=== PATIENT | male | born 1955 | race Caucasian/White ===

== ENCOUNTER 2023-12-14 13:57 | Outpatient (REF) | payer SELFPAY ==
[2023-12-14 14:09] LABS: Appearance Urine Clear; Color Urine Yellow; Glucose Urine UA Negative (Negative); Leukocyte Esterase Urine Trace (Negative); Nitrite Urine Negative (Negative); Specific Gravity - Urine 1.015 (1.005-1.025); UMIC TRIGGER UA YES; Urine Blood Negative (Negative); Urine Ketones Negative (Negative); Urine Protein Negative (Neg-Trace)
[2023-12-14 14:14] LABS: Bacteria Urine None Seen (None Seen); Hyaline Casts Urine 0-2 /LPF (0-2); RBC Urine 0-2 /HPF (0-2); Squamous Epithelial Cell Urine 0-2 /HPF (0-2); WBC Urine 0-5 /HPF (0-5)
== END 2023-12-14 13:58 | disposition home or self-care (01) ==
LOC: HO.HVNA 13:57
PROVIDERS: Visit Provider Family Medicine
DX: N39.0 Urinary tract infection, site not specified (principal)
CPT/HCPCS: 81001; 81003; 87086; 87088; 87186

== ENCOUNTER 2025-06-04 12:39 | Outpatient (REF) | payer MEDICARE, SELFPAY ==
--- NOTE | 2025-06-04 | EMG_ITS ---
Chief Complaint: numbness of lower extremities Referred by: Abad St MD Procedure done: NCV and EMG lower extremities Finding: Bilateral tibial and peroneal motor studies were performed bilateral superficial peroneal and sural sensory studies were performed tibial H reflexes were obtained and EMG needle examination was performed. 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
--- OUTSIDE RECORDS SUMMARY | 2025-06-04 15:04 | XMS_ITS | Clinical Summary ---
Author Organization [place] [address] [address] o[address] [facility] Building Address [address] [place] [address] Phone Care Team Providers Care Looper Operator Name Role Phone Valeria Brennan NP Primary Care Provider [phone] Allergies No known active allergies Medications tamsulosin (FLOMAX) 0.4 mg 24 hr capsule Take 2 capsules (0.8 mg total) by mouth. 4 Active gabapentin (NEURONTIN) 300 mg capsuleIndicati ons:Spinal stenosis, lumbosacral region Take 1 capsule (300 mg total) by mouth 3 (three) times a day. 90 each 5 06/12/20 25 Active lisinopriL (PRINIVIL,ZESTR IL) 2.5 mg tablet Take 1 tablet (2.5 mg total) by mouth 1 (one) time each day. 30 each 5 06/25/20 25 Active polyethylene glycol (MIRALAX) 17 gram packet Take 17 g by mouth 1 (one) time each day for 10 days. 5 06/04/20 25 Active midodrine (PROAMATINE) 5 mg tablet Take 0.5 tablets (2.5 mg total) by mouth 3 (three) times a day if needed (hypotension SBP<100). 5 06/24/20 25 Active pregabalin (LYRICA) 50 mg capsule Take 1 capsule (50 mg total) by mouth 3 (three) times a day. 5 05/13/20 25 Discontinue d(Side effects) amoxicillin-cla vulanate (AUGMENTIN) 875-125 mg per tablet Take 1 tablet by mouth 2 (two) times a day for 8 days. 5 06/02/20 25 phenazopyridine (PYRIDIUM) 100 mg tablet Take 1 tablet (100 mg total) by mouth 3 (three) times a day if needed for bladder spasms for up to 3 days. 5 05/28/20 25 Active Problems Problem Noted Date Diagnosed Date Atrial fibrillation with RVR (CMS/HCC V24, CMS/H CC V28) 05/20/2025 Septic shock (CMS/HCC V24, CMS/HCC V28) 05/20/20 25 Arterial hypotension 05/20/2025 Spinal stenosis, lumbosacral region 05/13/2025 Assessment & Plan (05/13/2025 6:52 PM EDT): I had a lengthy discussion with Mr. 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 Despite the bony decompression, there remains some compression of the nerve roots at L4-5 and L5-S1 from the cystic structure. We discussed the option of a reoperation but, it is entirely possible that this could reaccumulate. He has experienced worsened bowel and bladder incontinence since surgery which may not improve. He has tried multiple medications to treat the stinging and burning sensation in his legs. Most recently, this was Lyrica which caused adverse reaction and he stopped it on his own. He would like to go back to gabapentin which he was on for many years until the high dose no longer benefited him. He has had a remission without it and he can see some benefit. I have restarted gabapentin at 300 mg 3 times daily and we will order bilateral lower extremity EMGs. 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 Encounters Date Type Department Care Team Description 06/04/2025 Lab Requisition [facility] Lab [address] [place] [phone] Ena Arango MD Essential (primary) hypertension 05/30/2025 Lab Requisition [facility] Lab [address] [place] [phone] Ena Arango MD Essential (primary) hypertension 05/28/2025 Lab Requisition [facility] Lab [address] [place] [phone] Ena Arango MD Essential (primary) hypertension 05/26/2025 Lab Requisition [facility] Lab [address] [place] [phone] Ena Arango MD Essential (primary) hypertension; Hypothyroidism, unspecified; Vitamin D deficiency, unspecified 05/20/2025 7:10 PM EDT Anesthesia Event [facility] OR [address] [place] [phone] Jarvis Reed MD 05/20/2025 7:00 PM EDT - 05/20/2025 7:50 PM EDT Surgery [facility] OR [address] [place] [phone] Lyndon Matta MD CYSTOSCOPY INSERT STENT URETER 05/20/2025 4:47 AM EDT - 05/25/2025 2:14 PM EDT Hospital Encounter [facility] [address] [place] [phone] Jamie Alcazar MD Damri, Misael Mal, MD LoiaSonali cespedes MD Levrault, Richard, DO Flores, Carlos M, MD Kela, Kashyap Devendrabhai, MD Septic shock ([facility] V24, [facility] V28) (Primary Dx); Shock circulatory ([facility] V24, [facility] V28); Atrial fibrillation with RVR ([facility] V24, [facility] V28); Sepsis with encephalopathy and septic shock, due to unspecified organism ([facility] V24, [facility] V28); Urinary tract infection, acute; Acute renal failure, unspecified acute renal failure type ([facility] V24); Obstructive pyelonephritis Discharge Disposition: Senior Living Facility 05/13/2025 1:30 PM EDT Office Visit [facility] [address] [place] [phone] Darshana Warren MD Spinal stenosis, lumbosacral region (Primary Dx); Radiculopathy, lumbar region 05/13/2025 Telephone [facility] [address] [place] [phone] Valeria Brennan NP 04/24/2025 Telephone [facility] [address] [place] [phone] Camilo Neff MD 04/18/2025 1:00 PM EDT Office Visit [facility] [address] [place] [phone] Valeria Brennan NP Nerve sheath tumor (Primary Dx); Sciatic leg pain; Urinary retention; Neuropathy; Weakness of both lower extremities from Last 3 Months Surgical History Surgery Date Site/Laterality Comments TONSILLECTOMY PROCEDURE: HISTORICAL TONSILLECTOMY HERNIA REPAIR PROCEDURE: HISTORICAL HERNIA REPAIR/ING COLONOSCOPY 03/18/2008 PROCEDURE: HISTORICAL COLONOSCOPY; COMMENT: diverticulosis; repeat in ten years OTHER SURGICAL HISTORY N/A PROCEDURE: HISTORY OTHER; COMMENT: tumor from spine lumbar area unable to remove all of the tumor. 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) Muscle wasting and atrophy, NEC, unsp lower leg DX:Muscle wasting and atroph y, NEC, unsp lower leg Lipoma of back DX:Lipoma of [place] Family History Medical History Relation Name Comments Prostate cancer Brother x2 younger-Aidan ael Heart attack Father Stroke Father Diabetes Maternal Grandmother Heart attack Maternal Grandmother Breast cancer Mother Hypertension Mother Heart attack Paternal Grandmother Relation Name Status Comments Brother x2 Alive Father Maternal Grandmother Mother Paternal Grandmother Sister Alive Social History Tobacco Use Types Packs/Day Years Used Date Smoking Tobacco: Never Smokeless Tobacco: Never Tobacco Cessation:Counseling Given: Not Answered Alcohol Use Standard Drinks/Week Comments Not Currently 10 (1 standard drink = 0.6 oz pu re alcohol) Food Risk Answer Date Recorded Within the past 12 months we worried whether our food would run out before we got money to buy more. Not asked 05/22/2025 Within the past 12 months th e food we bought just didn't last and we didn't have money to get more. Not asked 05/22/2025 Interpersonal Safety Answer Date Record ed Physical Abuse 05/21/2025 Verbal Abuse 05/21/2025 Sex and Gender Information Value Date Recorded Sex Assigned at Not on file Legal Sex Male 10:09 PM EST Gender Identity Not on file Sexual Orientation Not on file Obstetrics History Last Filed Vital Signs Vital Sign Reading Time Taken Comments Blood Pressure 133/60 05/25/2025 12:04 PM EDT Pulse 90 05/25/2025 12:04 PM EDT Temperature 36.7 C (98.1 F) 05/25/2025 7:50 AM EDT Respiratory Rate 17 05/25/2025 7:50 AM EDT Oxygen Saturation 94% 05/25/2025 8:34 AM EDT Inhaled Oxygen Concentration - - Weight 74.8 kg (164 lb 14.5 oz) 05/20/2025 8:17 AM EDT Height 180.3 cm (5' 11 ) 05/20/2025 8:17 AM EDT Body Mass Index 23 05/20/2025 8:17 AM EDT Plan of Treatment Upcoming Encounters Date Type Department Care Team (Late st Contact Info) Description 06/16/2025 10:30 AM EDT Hospital Encounter [facility] OR [address] [place] [phone] Chance Corcoran MD [address] [address] 06/16/2025 10:30 AM EDT - 06/16/2025 12:[address] [facility] OR [address] [place] [phone] Chance Corcoran MD [address] [address] CYSTOSCOPY URETEROSCOPY LASER LITHOTRIPSY AND STENT [49700 (CPT )] 07/21/2025 3:00 PM EDT Office Visit Internal Medicine - [facility] [address] [place] [phone] Valeria Brennan, [place] [address] [place] [address] Scheduled Procedures Name Priority Associated Diagnoses Date/Ti me CYSTOSCOPY URETEROSCOPY Calculus of ureter 06/16/2025 10:30 AM EDT Health Maintenance Due Date Last Done Comments DTaP,Tdap,and Td Vaccines (1 - Tdap) 1975 Pneumococcal Vaccine: 50+ Years (1 of 1 - PCV) 2006 Zoster Vaccines (1 of 2) 2006 Cholesterol Screening (Lipid Panel) 09/03/2022 Colorectal Cancer Screening: Colonoscopy 09/03/2022 Hepatitis C Screening 09/03/2022 Depression Screening 10/02/2024 01/16/2024 Medicare Annual Wellness Visit 01/15/2025 01/16/2024 COVID-19 Vaccine ( season) 2025 10/11/2022, 09/28/2021, 03/04/2021, Additional history exists Influenza Vaccine (#1) 2025 Social Influencers of Health Screening 05/22/2026 05/22/2025 Falls Risk Assessment 05/25/2026 05/25/2025 Hypertension/CHF/CAD Annual BMP Blood Test 06/03/2026 06/03/2025, 05/29/2025, 05/26/2025, Additional history exists RSV Immunization Adult Patients (1 - 1-dose 75+ series) 2031 HIB Vaccines Aged Out No longer eligi ble based on patient's age to complete this topic HPV Vaccines Aged Out No longer eligi ble based on patient's age to complete this topic Hepatitis A Vaccines Aged Out No long er eligible based on patient's age to complete this topic Hepatitis B Vaccines Aged Out No long er eligible based on patient's age to complete this topic IPV Vaccines Aged Out No longer eligi ble based on patient's age to complete this topic MMR Vaccines Aged Out No longer eligi ble based on patient's age to complete this topic Meningococcal ACWY Vaccine Aged Out N o longer eligible based on patient's age to complete this topic Meningococcal B Vaccine Aged Out No l onger eligible based on patient's age to complete this topic RSV Immunization Patients Under 20 months Aged Out No longer eligible based on patient's age to complete this topic Varicella Vaccines Aged Out No longer eligible based on patient's age to complete this topic Medical Devices Implanted Type Area Sound Equipment Mechanic Device Identifier Shelf Expiration Date Model / Serial / Lot Surgiflo Hemostatic Matrix [facility] [id number] Implanted:Qty : 1 on 11/15/2023 by Venkatesh Allan MD Implants N/A: Spine Lumbar [facility] [employer] 06/01/2025 [id number] / / [id number] Sealant Fibrin Vistaseal 4ml [facility] [id number] Implanted:Qty : 2 on 11/15/2023 by Venkatesh Allan MD Implants N/A: Spine Lumbar [facility] [employer] 12/15/2023 [id number] / / [id number] ++Dnu+Disc Use [id number] Hemostat Absorb 2x14in Surgicel [facility] [id number] Implanted:Qty : 1 on 11/15/2023 by Venkatesh Allan MD Implants N/A: Spine Lumbar [facility] [employer] 12/30/20251950 / / [id number] Stent Uret [id number] Contr Percuflex Hydroplus - [id number] - [id number] Implanted:Qty : 1 on 05/20/2025 by Lyndon Matta MD at [facility] Stents Left: Ureter [employer] [id number] 02/26/2028 [id number] / [id number] / [id number] Stent Uret [id number] Contr Percuflex Hydroplus - [id number] - [id number] Implanted:Qty : 1 on 05/20/2025 by Lyndon Matta MD at [facility] Stents Right: Ureter [employer] [id number] 02/26/2028 [id number] / [id number] / [id number] Duramatrix Onlay Plus 3x3 Stry-Cran [id number] Implanted:Qty : 1 on 11/15/2023 by Venkatesh Allan MD N/A: Spine Lumbar [employer] 06/01/2026 [id number] / / [id number] Procedures Procedure Name Priority Date/Time Associated Diagnosis Comments BASIC METABOLIC PANEL Routine 06/03/2025 5:10 AM EDT Essential (primary) hypertension COMPLETE BLOOD COUNT Routine 06/03/2025 5:10 AM EDT Essential (primary) hypertension BASIC METABOLIC PANEL Routine 05/29/2025 7:04 AM EDT Essential (primary) hypertension COMPLETE BLOOD COUNT Routine 05/29/2025 7:04 AM EDT Essential (primary) hypertension THYROID STIMULATING HORMONE Routine 05/26/2025 6:34 AM EDT Essential (primary) hypertension Hypothyroidism, unspecified Vitamin D deficiency, unspecified VITAMIN D 25 HYDROXY Routine 05/26/2025 6:34 AM EDT Essential (primary) hypertension Hypothyroidism, unspecified Vitamin D deficiency, unspecified VITAMIN B12 AND FOLATE Routine 6:34 AM EDT Essential (primary) hypertension Hypothyroidism, unspecified Vitamin D deficiency, unspecified COMPREHENSIVE METABOLIC PANEL Routine 05/26/2025 6:34 AM EDT Essential (primary) hypertension Hypothyroidism, unspecified Vitamin D deficiency, unspecified COMPLETE BLOOD COUNT Routine 05/26/2025 6:34 AM EDT Essential (primary) hypertension Hypothyroidism, unspecified Vitamin D deficiency, unspecified ECG ANNOTATED 05/26/2025 MAGNESIUM Routine 05/25/2025 5:52 AM EDT BASIC METABOLIC PANEL Routine 05/25/2025 5:52 AM EDT COMPLETE BLOOD COUNT Routine 05/25/2025 5:52 AM EDT PHOSPHORUS Routine 05/25/2025 5:52 AM EDT MAGNESIUM Routine 05/24/2025 6:39 AM EDT BASIC METABOLIC PANEL Routine 05/24/2025 6:39 AM EDT COMPLETE BLOOD COUNT Routine 05/24/2025 6:39 AM EDT PHOSPHORUS Routine 05/24/2025 6:39 AM EDT CBC WITH AUTO DIFFERENTIAL Routine 05/23/2025 6:50 AM EDT CBC AND DIFFERENTIAL Routine 05/23/2025 6:50 AM EDT PROCALCITONIN Routine 05/23/2025 6:50 AM EDT PHOSPHORUS Routine 05/23/2025 6:50 AM EDT MAGNESIUM Routine 05/23/2025 6:50 AM EDT CALCIUM, IONIZED Routine 05/23/2025 6:50 AM EDT BASIC METABOLIC PANEL Routine 05/23/2025 6:50 AM EDT CBC WITH AUTO DIFFERENTIAL Routine 05/22/2025 4:18 AM EDT CBC AND DIFFERENTIAL Routine 05/22/2025 4:18 AM EDT PROCALCITONIN Routine 05/22/2025 4:18 AM EDT PHOSPHORUS Routine 05/22/2025 4:18 AM EDT MAGNESIUM Routine 05/22/2025 4:18 AM EDT CALCIUM, IONIZED Routine 05/22/2025 4:18 AM EDT BASIC METABOLIC PANEL Routine 05/22/2025 4:18 AM EDT TRANSTHORACIC ECHOCARDIOGRAM (TTE) LIMITED WITH CONTRAST Routine 05/21/2025 1:37 PM EDT Septic shock (CMS/HCC V24, CMS/HCC V28) CULTURE BLOOD STAT 05/21/2025 9:04 AM EDT CULTURE BLOOD STAT 05/21/2025 9:03 AM EDT CREATININE, URINE, RANDOM Routine 05/21/2025 6:21 AM EDT SODIUM, URINE, RANDOM Routine 05/21/2025 6:21 AM EDT UREA NITROGEN, URINE Routine 05/21/2025 6:21 AM EDT MANUAL DIFFERENTIAL - SYSMEX WAM Routine 05/21/2025 4:56 AM EDT THYROID STIMULATING HORMONE WITH REFLEX TO FREE T4 AND FREE T3 Add-On 05/21/2025 4:56 AM EDT HEPATIC FUNCTION PANEL Routine 4:56 AM EDT CBC WITH AUTO DIFFERENTIAL Routine 05/21/2025 4:56 AM EDT TROPONIN I HIGH SENSITIVITY Routine 05/21/2025 4:56 AM EDT LACTATE Routine 05/21/2025 4:56 AM EDT CALCIUM, IONIZED Routine 05/21/2025 4:56 AM EDT MAGNESIUM Routine 05/21/2025 4:56 AM EDT BASIC METABOLIC PANEL Routine 05/21/2025 4:56 AM EDT CBC AND DIFFERENTIAL Routine 05/21/2025 4:56 AM EDT MRSA PCR Routine 05/20/2025 10:45 PM EDT OXYGEN THERAPY, ADULT Routine 05/20/2025 7:57 PM EDT OXYGEN THERAPY, ADULT Routine 05/20/2025 7:57 PM EDT OXYGEN THERAPY, ADULT Routine 05/20/2025 7:57 PM EDT OXYGEN THERAPY, ADULT Routine 05/20/2025 7:57 PM EDT XR UROGRAM RETROGRADE Routine 05/20/2025 7:44 PM EDT CULTURE URINE Routine 05/20/2025 7:35 PM EDT Obstructive pyelonephritis CYSTOSCOPY INSERT STENT URETER 05/20/2025 7:10 PM EDT Obstructive pyelonephritis Bilateral ureteral calculi TROPONIN I HIGH SENSITIVITY Timed 05/20/2025 6:30 PM EDT TROPONIN I HIGH SENSITIVITY Timed 05/20/2025 5:53 PM EDT PROTHROMBIN TIME WITH INR Routine 05/20/2025 5:21 PM EDT CALCIUM, IONIZED Routine 05/20/2025 5:21 PM EDT COMPREHENSIVE METABOLIC PANEL Routine 05/20/2025 5:21 PM EDT LACTATE Routine 05/20/2025 5:21 PM EDT TROPONIN I HIGH SENSITIVITY Timed 05/20/2025 11:50 AM EDT CREATINE KINASE AND CKMB Routine 05/20/2025 10:21 AM EDT TROPONIN I HIGH SENSITIVITY Timed 05/20/2025 10:21 AM EDT RESPIRATORY VIRUS PANEL MOLECULAR STUDY STAT 05/20/2025 10:18 AM EDT ECG 12-LEAD Routine 05/20/2025 10:[address] CHEST/ABDOMEN/PELVIS WO CONTRAST STAT 05/20/2025 9:29 AM EDT CALCIUM, IONIZED Routine 05/20/2025 9:08 AM EDT MRSA PCR Routine 05/20/2025 9:06 AM EDT MANUAL DIFFERENTIAL - SYSMEX WAM Routine 05/20/2025 9:02 AM EDT PATHOLOGIST REVIEW BLOOD SMEAR Routine 05/20/2025 9:02 AM EDT PHOSPHORUS Routine 05/20/2025 9:02 AM EDT MAGNESIUM Routine 05/20/2025 9:02 AM EDT CBC WITH AUTO DIFFERENTIAL Routine 05/20/2025 9:02 AM EDT COMPREHENSIVE METABOLIC PANEL Routine 05/20/2025 9:02 AM EDT LACTATE Routine 05/20/2025 9:02 AM EDT AMMONIA Routine 05/20/2025 9:02 AM EDT CBC AND DIFFERENTIAL Routine 05/20/2025 9:02 AM EDT TRANSTHORACIC ECHOCARDIOGRAM (TTE) COMPLETE W/ CONTRAST STAT 05/20/2025 8:16 AM EDT Shock circulatory (CMS/HCC V24, CMS/HCC V28) HC INSERTION/REMOVAL/REPL ACEMENT CATH Routine 05/20/2025 7:34 AM EDT MS INSERTION NON-TUNNELED CENTRALLY INSERTED CENTRAL VENOUS CATH 5 YRS/> Routine 05/20/2025 7:34 AM EDT TROPONIN I HIGH SENSITIVITY STAT 05/20/2025 6:30 AM EDT XR CHEST 1 VIEW STAT 05/20/2025 6:23 AM EDT LAGUERRE URINE CULTURE TUBE STAT 05/20/2025 6:22 AM EDT URINALYSIS WITH REFLEX MICROSCOPIC AND CULTURE STAT 05/20/2025 6:22 AM EDT URINALYSIS WITH REFLEX MICROSCOPIC AND CULTURE STAT 05/20/2025 6:22 AM EDT DRUG ABUSE SCREEN 8A PANEL, URINE STAT 05/20/2025 6:22 AM EDT CULTURE URINE STAT 05/20/2025 6:22 AM EDT VENOUS BLOOD GAS STAT 05/20/2025 6:19 AM EDT BLOOD CULTURE PATHOGENS BY PCR Routine 05/20/2025 5:42 AM EDT CULTURE BLOOD STAT 05/20/2025 5:42 AM EDT LACTATE STAT 05/20/2025 5:35 AM EDT MANUAL DIFFERENTIAL - SYSMEX WAM STAT 05/20/2025 5:34 AM EDT TYPE AND SCREEN STAT 05/20/2025 5:34 AM EDT CBC WITH AUTO DIFFERENTIAL STAT 05/20/2025 5:34 AM EDT PHOSPHORUS STAT 05/20/2025 5:34 AM EDT MAGNESIUM STAT 05/20/2025 5:34 AM EDT LIPASE STAT 05/20/2025 5:34 AM EDT TROPONIN I HIGH SENSITIVITY STAT 05/20/2025 5:34 AM EDT CBC AND DIFFERENTIAL STAT 05/20/2025 5:34 AM EDT ETHANOL STAT 05/20/2025 5:34 AM EDT COMPREHENSIVE METABOLIC PANEL STAT 05/20/2025 5:34 AM EDT CULTURE BLOOD STAT 05/20/2025 5:34 AM EDT ECG 12-LEAD STAT 05/20/2025 4:51 AM EDT MS CRITICAL CARE 30-74 MINUTES Routine 05/20/2025 4:46 AM EDT EXTERNAL MRI REPORT 04/30/2025 DEPRESSION SCREENING Routine 01/16/2024 from Last 3 Months or Most Recently Relevant to Health Maintenance Results * (ABNORMAL) Complete blood count (06/03/2025 5:10 AM EDT) Only the most recent of5 resultswithin the time period is included. [facility] WBC 7.8 4.8 - 10.8 K/[facility] LAB HEMETOLOGY METHOD 06/03/2025 11:59 AM EDT [facility] RBC 3.60(L) 4.50 - 5.50 M/mcL LAB HEMETOLOGY METHOD 06/03/2025 11:59 AM [facility] Hemoglobin 10.7(L) 13.5 - 17.5 g/dL LAB HEMETOLOGY METHOD 06/03/2025 11:59 AM [facility] Hematocrit 34.2(L) 42.0 - 54.0 % LAB HEMETOLOGY METHOD 06/03/2025 11:59 AM [facility] MCV 96.1 79.0 - 98.0 FL LAB HEMETOLOGY METHOD 06/03/2025 11:59 AM [facility] MCH 30.1 27.0 - 32.0 pcg LAB HEMETOLOGY METHOD 06/03/2025 11:59 AM [facility] MCHC 31.3(L) 32.0 - 37.0 g/dL LAB HEMETOLOGY METHOD 06/03/2025 11:59 AM [facility] RDW 14.5 11.0 - 15.0 % LAB HEMETOLOGY METHOD 06/03/2025 11:59 AM [facility] Platelets 465(H) 130 - 400 K/mcL LAB HEMETOLOGY METHOD 06/03/2025 11:59 AM [facility] MPV 9.6 7.0 - 11.0 FL LAB HEMETOLOGY METHOD 06/03/2025 11:59 AM [facility] NRBC 0.0 <1.0 % LAB HEMETOLOGY METHOD 06/03/2025 11:59 AM [facility] NRBC Absolute 0.00 <0.10 K/mcL LAB HEMETOLOGY METHOD 06/03/2025 11:59 AM [facility] Blood Venous blood specimen / Unknown Venipuncture / Unknown 06/03/2025 5:10 AM EDT 06/03/2025 11:02 AM EDT us Ena Arango MD LAB BLOOD ORDERABLES Final Resul t [facility] [address] [place] [address], [place] [phone] * (ABNORMAL) Basic metabolic panel (06/03/2025 5:10 AM EDT) Only the most recent of7 resultswithin the time period is included. Sodium 140 133 - 145 mmol/L LAB CHEMISTRY METHOD 06/03/2025 2:19 PM EDT [facility] Potassium 4.4 3.5 - 5.5 mmol/L LAB CHEMISTRY METHOD 06/03/2025 2:19 PM [facility] Chloride 106 96 - 110 mmol/L LAB CHEMISTRY METHOD 06/03/2025 2:19 PM [facility] CO2 29 21 - 32 mmol/L LAB CHEMISTRY METHOD 06/03/2025 2:19 PM [facility] Anion Gap 5 3 - 11 LAB CHEMISTRY METHOD 06/03/2025 2:19 PM [facility] Glucose 65(L) 70 - 100 mg/dL LAB CHEMISTRY METHOD 06/03/2025 2:19 PM [facility] BUN 23 5 - 25 mg/dL LAB CHEMISTRY METHOD 06/03/2025 2:19 PM [facility] Creatinine 1.31(H) 0.70 - 1.30 mg/dL LAB CHEMISTRY METHOD 06/03/2025 2:19 PM [facility] eGFR 59(L) >=60 mL/min/1. 73m2 LAB CHEMISTRY METHOD 06/03/2025 2:19 PM [facility] Comment:Calculation based on the Chronic Kidney Disease Epidemiology Collaboration (CKD-EPI) equation refit without adjustment for race. BUN/Creatinine Ratio 17.6 LAB CHEMISTRY METHOD 06/03/2025 2:19 PM EDT [facility] Calcium 8.2(L) 8.5 - 10.5 mg/dL LAB CHEMISTRY METHOD 06/03/2025 2:19 PM EDT [facility] Blood Venous blood specimen / Unknown Venipuncture / Unknown 06/03/2025 5:10 AM EDT 06/03/2025 11:02 AM EDT us Ena Arango MD LAB BLOOD ORDERABLES Final Resul t Performing Organization Address [facility] de Phone Number [facility] [address] [place] [address], [place] [phone] * (ABNORMAL) Vitamin B12 and folate (05/26/2025 6:34 AM EDT) Pathologist [facility] Vitamin B-12 1,744(H) 250 - 900 pcg/mL LAB CHEMISTRY METHOD 05/26/2025 1:04 PM EDT [facility] Folate 5.4 2.8 - 17.0 ng/ml LAB CHEMISTRY METHOD 05/26/2025 1:04 PM EDT [facility] Blood Venous blood specimen / Unknown Venipuncture / Unknown 05/26/2025 6:34 AM EDT 05/26/2025 10:33 AM EDT us Ena Arango MD LAB BLOOD ORDERABLES Final Resul t Performing Organization Address City/[facility]/ZIP Co de Phone Number [facility] [address] [place] [address], [place] [phone] * Vitamin D 25 hydroxy (05/26/2025 6:34 AM EDT) Pathologist [facility] Vit D, 25-Hydroxy 45.6 30.0 - 80.0 ng/mL LAB CHEMISTRY METHOD 05/26/2025 2:20 PM EDT [facility] Blood Venous blood specimen / Unknown Venipuncture / Unknown 05/26/2025 6:34 AM EDT 05/26/2025 10:33 AM EDT us Ena Arango MD LAB BLOOD ORDERABLES Final Resul t Performing Organization Address [facility]/ZIP Co de Phone Number [facility] [address] [place] [address], [place] [phone] * (ABNORMAL) Thyroid stimulating hormone (05/26/2025 6:34 AM EDT) TSH 4.97(H) 0.40 - 4.00 mcIU/mL LAB CHEMISTRY METHOD 05/26/2025 2:20 PM EDT [facility] Blood Venous blood specimen / Unknown Venipuncture / Unknown 05/26/2025 6:34 AM EDT 05/26/2025 10:33 AM EDT us Ena Arango MD LAB BLOOD ORDERABLES Final Resul t Performing Organization Address [facility] de Phone Number [facility] [address] [place] [address], [place] [phone] * (ABNORMAL) Comprehensive metabolic panel (05/26/2025 6:34 AM EDT) Only the most recent of4 resultswithin the time period is included. Sodium 142 133 - 145 mmol/L LAB CHEMISTRY METHOD 05/26/2025 1:04 PM EDT [facility] Potassium 4.0 3.5 - 5.5 mmol/L LAB CHEMISTRY METHOD 05/26/2025 1:04 PM EDT [facility] Chloride 107 96 - 110 mmol/L LAB CHEMISTRY METHOD 05/26/2025 1:04 PM EDT [facility] CO2 26 21 - 32 mmol/L LAB CHEMISTRY METHOD 05/26/2025 1:04 PM EDT [facility] Anion Gap 9 3 - 11 LAB CHEMISTRY METHOD 05/26/2025 1:04 PM [facility] Glucose 62(L) 70 - 100 mg/dL LAB CHEMISTRY METHOD 05/26/2025 1:04 PM [facility] BUN 27(H) 5 - 25 mg/dL LAB CHEMISTRY METHOD 05/26/2025 1:04 PM [facility] Creatinine 1.73(H) 0.70 - 1.30 mg/dL LAB CHEMISTRY METHOD 05/26/2025 1:04 PM [facility] eGFR 42(L) >=60 mL/min/1. 73m2 LAB CHEMISTRY METHOD 05/26/2025 1:04 PM [facility] Comment:Calculation based on the Chronic Kidney Disease Epidemiology Collaboration (CKD-EPI) equation refit without adjustment for race. BUN/Creatinine Ratio 15.6 LAB CHEMISTRY METHOD 05/26/2025 1:04 PM [facility] Calcium 8.1(L) 8.5 - 10.5 mg/dL LAB CHEMISTRY METHOD 05/26/2025 1:04 [facility] AST (SGOT) 22 10 - 42 unit/L LAB CHEMISTRY METHOD 05/26/2025 1:04 [facility] ALT (SGPT) 25 10 - 60 unit/L LAB CHEMISTRY METHOD 05/26/2025 1:04 PM [facility] Alkaline Phosphatase 205(H) 42 - 121 unit/L LAB CHEMISTRY METHOD 05/26/2025 1:04 PM [facility] Total Protein 5.2(L) 6.0 - 8.0 g/dL LAB CHEMISTRY METHOD 05/26/2025 1:04 PM [facility] Albumin 2.0(L) 3.2 - 5.0 g/dL LAB CHEMISTRY METHOD 05/26/2025 1:04 PM [facility] Total Bilirubin 0.4 0.0 - 1.4 mg/dL LAB CHEMISTRY METHOD 05/26/2025 1:04 PM EDT [facility] Blood Venous blood specimen / Unknown Venipuncture / Unknown 05/26/2025 6:34 AM EDT 05/26/2025 10:33 AM EDT Ena Arango MD LAB BLOOD ORDERABLES Final Resul t Performing Organization Address City/[facility]/ZIP Co de Phone Number [facility] [address] [place] [address], [place] [phone] * ECG-Annotated (05/26/2025) Provider Onbase ECG ORDERABLES Final Result * Phosphorus (05/25/2025 5:52 AM EDT) Only the most recent of6 resultswithin the time period is included. Phosphorus 3.4 2.5 - 4.5 mg/dL LAB CHEMISTRY METHOD 05/25/2025 7:23 AM EDT [facility] Blood Venous blood specimen / Unknown Venipuncture / Unknown 05/25/2025 5:52 AM EDT 05/25/2025 6:36 AM EDT Julio Holguin MD LAB BLOOD ORDERABLE S Final Result Performing Organization Address City/[facility]/ZIP Co de Phone Number [facility] [address] [place] [address], [place] [phone] * (ABNORMAL) Magnesium (05/25/2025 5:52 AM EDT) Only the most recent of7 resultswithin the time period is included. Magnesium 1.6(L) 1.9 - 2.6 mg/dL LAB CHEMISTRY METHOD 05/25/2025 7:23 AM EDT [facility] Blood Venous blood specimen / Unknown Venipuncture / Unknown 05/25/2025 5:52 AM EDT 05/25/2025 6:36 AM EDT Julio Holguin MD LAB BLOOD ORDERABLE S Final Result Performing Organization Address [facility] Co de Phone Number [facility] [address] [place] [address], [place] [phone] * (ABNORMAL) Procalcitonin (05/23/2025 6:50 AM EDT) Only the most recent of2 resultswithin the time period is included. Procalcitonin 31.40(H) <=0.16 ng/mL LAB CHEMISTRY METHOD 05/23/2025 8:04 AM EDT [facility] Blood Venous blood specimen / Unknown Venipuncture / Unknown 05/23/2025 6:50 AM EDT 05/23/2025 7:05 AM EDT Narrative [facility] - 05/23/2025 8:04 AM EDT Procalcitonin > 2.00 ng/ml: Procalcitonin Levels above 2.00 ng/ml, on the first day of ICU admission represent a high risk for progression to severe sepsis and/or septic shock. Procalcitonin < 0.50 ng/ml: Procalcitonin levels below 0.50 ng/ml on the first day of ICU admission represent a low risk for progression to severe sepsis and/or septic shock. Concentrations <0.5 ng/mL do not exclude an infection, on account of local ized infections (without systemic signs) which can be associated with such low concentrations, or a systemic infection in its initial stages (<6 hours). Furthermore, increased procalcitonin can occur without infection. PCT concentrations between 0.5 and 2.0 ng/mL should be interpreted taking into account the patient's history. It is recommended to retest PCT within 6-24 hours if any concentrations <2.0 ng/mL are obtained. us Benoit Cullen DO LAB BLOOD ORDERABLES Final R esult Performing Organization Address [facility]/ZIP Co de Phone Number [facility] [address] [place] [address], * (ABNORMAL) CBC auto differential (05/23/2025 6:50 AM EDT) Only the most recent of5 resultswithin the time period is included. WBC 13.1(H) 4.8 - 10.8 K/mcL LAB HEMETOLOGY METHOD 05/23/2025 7:22 AM EDT [facility] RBC 3.80(L) 4.50 - 5.50 M/mcL LAB HEMETOLOGY METHOD 05/23/2025 7:22 AM EDT [facility] Hemoglobin 11.1(L) 13.5 - 17.5 g/dL LAB HEMETOLOGY METHOD 05/23/2025 7:22 AM EDT [facility] Hematocrit 33.5(L) 42.0 - 54.0 % LAB HEMETOLOGY METHOD 05/23/2025 7:22 AM EDT [facility] MCV 88.9 79.0 - 98.0 FL LAB HEMETOLOGY METHOD 05/23/2025 7:22 AM EDT [facility] MCH 29.4 27.0 - 32.0 pcg LAB HEMETOLOGY METHOD 05/23/2025 7:22 AM EDT [facility] MCHC 33.1 32.0 - 37.0 g/dL LAB HEMETOLOGY METHOD 05/23/2025 7:22 AM EDT [facility] RDW 14.8 11.0 - 15.0 % LAB HEMETOLOGY METHOD 05/23/2025 7:22 AM EDT [facility] Platelets 160 130 - 400 K/mcL LAB HEMETOLOGY METHOD 05/23/2025 7:22 AM EDT [facility] MPV 12.0(H) 7.0 - 11.0 FL LAB HEMETOLOGY METHOD 05/23/2025 7:22 AM [facility] NRBC 0.0 <1.0 % LAB HEMETOLOGY METHOD 05/23/2025 7:22 AM [facility] NRBC Absolute 0.00 <0.10 K/mcL LAB HEMETOLOGY METHOD 05/23/2025 7:22 AM [facility] Neutrophils Relative 79.7 % LAB HEMETOLOGY METHOD 05/23/2025 7:22 AM [facility] Lymphocytes Relative 6.8 % LAB HEMETOLOGY METHOD 05/23/2025 7:22 AM [facility] Monocytes Relative 8.4 % LAB HEMETOLOGY METHOD 05/23/2025 7:22 AM [facility] Eosinophils Relative 1.3 % LAB HEMETOLOGY METHOD 05/23/2025 7:22 AM [facility] Basophils Relative 0.7 % LAB HEMETOLOGY METHOD 05/23/2025 7:22 AM [facility] Immature Granulocytes Relative 3.1 % LAB HEMETOLOGY METHOD 05/23/2025 7:22 AM [facility] Neutrophils Absolute 10.42(H) 1.50 - 7.00 K/mcL LAB HEMETOLOGY METHOD 05/23/2025 7:22 AM [facility] Lymphocytes Absolute 0.89(L) 1.00 - 5.00 K/mcL LAB HEMETOLOGY METHOD 05/23/2025 7:22 AM [facility] Monocytes Absolute 1.10(H) 0.20 - 1.00 K/mcL LAB HEMETOLOGY METHOD 05/23/2025 7:22 AM [facility] Eosinophils Absolute 0.17 0.00 - 0.50 K/mcL LAB HEMETOLOGY METHOD 05/23/2025 7:22 AM [facility] Basophils Absolute 0.09 0.00 - 0.20 K/mcL LAB HEMETOLOGY METHOD 05/23/2025 7:22 AM EDT [facility] Immature Granulocytes Absolute 0.41(H) 0.00 - 0.03 K/[facility] LAB HEMETOLOGY METHOD 05/23/2025 7:22 AM EDT [facility] Blood Venous blood specimen / Unknown Venipuncture / Unknown 05/23/2025 6:50 AM EDT 05/23/2025 7:05 AM EDT [facility] LAB BLOOD ORDERABLES Final R esult Performing Organization Address City/[facility] Co de Phone Number [facility] [address] [place] [address], [place] [phone] * (ABNORMAL) Calcium, ionized (05/23/2025 6:50 AM EDT) Only the most recent of5 resultswithin the time period is included. Pathologist [facility] Calcium Ionized 4.20(L) 4.50 - 5.30 mg/dL 05/23/2025 7:24 AM EDT [facility] Blood Venous blood specimen / Unknown Venipuncture / Unknown 05/23/2025 6:50 AM EDT 05/23/2025 7:05 AM EDT [facility] BLOOD ORDERABLES Final R esult Performing Organization Address City/[facility]/ZIP Co de Phone Number [facility] [address] [place] [address], [place] [phone] * (ABNORMAL) TRANSTHORACIC ECHOCARDIOGRAM (TTE) LIMITED WITH CONTRAST (05/21/2025 1:37 PM EDT) LV EDV (A2C) 166 mL CV PACS LV EDV (A4C) 137 mL CV PACS LV Diastolic Volume (BP) 159(A) 62 - 150 mL CV PACS LV ESV (A2C) 109 mL CV PACS LV ESV (A4C) 91 mL CV PACS LV Systolic Volume (BP) 99(A) 21 - 61 mL CV PACS IVSD 1.0 0.6 - 1.0 cm CV PACS LVIDD 4.5 4.2 - 5.8 cm CV PACS LVIDS 3.7 2.5 - 4.0 cm CV PACS LVPWD 1.0 0.6 - 1.0 cm CV PACS MV E' Tissue Velocity Lateral 6 cm/s CV PACS MV E' Tissue Velocity Septal 7 cm/s CV PACS Ejection Fraction (A2C) 34 % CV PACS Ejection Fraction (A4C) 33 % CV PACS Ejection Fraction (BP) 38 % CV PACS Left Atrium Minor [place] 5.1 cm CV PACS Left Atrium Major [place] 5.7 cm CV PACS LA Area Sys (A2C) 18 cm2 CV PACS LA Area Sys (A4C) 21 cm2 CV PACS LA Volume (BP) 56 mL CV PACS IVC Proximal 1.9 cm CV PACS MV Deceleration [place] 3.1 m/s2 CV PACS E Wave Deceleration Time 204 119 - 242 ms CV PACS MV PHT 60 ms CV PACS MV Peak A Claudio 0.69 m/s CV PACS MV Peak E Claudio 0.63 m/s CV PACS MV Area PHT 3.7 cm2 CV PACS RV Diastolic Basal Dimension 4.3(A) 2.5 - 4.1 cm CV PACS RV S' 8 cm/s CV PACS TAPSE 12 mm CV PACS TR Peak Velocity 2.50 m/s CV PACS TR Peak Gradient 25 mmHg CV PACS LV ESV Index (A4C) 47 mL/m2 CV PACS LV EDV Index (A4C) 71 mL/m2 CV PACS E/E' Ratio Septal 9 CV PACS E/E' Ratio Averaged 10 CV PACS Relative Wall Thickness ratio 0.44 CV PACS FS 18 % CV PACS LV Mass 2D 153 g CV PACS LVIDD Index 2.32 cm/m2 CV PACS LVIDS Index 1.91 cm/m2 CV PACS E/A Ratio 0.9 CV PACS E/E' Ratio Lateral 11 CV PACS LV Systolic Volume Index (BP) 51 mL/m2 CV PACS LV Diastolic Volume Index (BP) 82 mL/m2 CV PACS LA Volume Index (BP) 29 mL/m2 CV PACS LV Mass Index 2D 79 g/m2 CV PACS LV EDV Index (A2C) 86 mL/m2 CV PACS LV ESV Index (A2C) 56 mL/m2 CV PACS BSA 1.94 m2 CV PACS Right Ventricular Peak Systolic Pressure 28 mmHg CV PACS Est. RA Pressure 3 mmHg CV PACS Anatomical Region Laterality Modality Ultrasound Narrative 05/22/2025 12:22 PM EDT Technically difficult study. Limited study for evaluation of the LVEF Left Ventricle: Systolic function is moderately decreased with an ejection fraction of 38% by Em's Biplane. Moderate global LV hypokinesis is present. There is Grade I (mild) diastolic dysfunction. Right ventricular systolic function is moderately reduced. TAPSE 12 mm. RV S' 8 cm/sec. Tricuspid Valve: There is mild to moderate regurgitation. The right ventricular systolic pressure is normal. The RVSP is estimated at 28 mmHg. Left Ventricle Left ventricle cavity size is normal. Wall thickness is normal. Systolic function is moderately decreased with an ejection fraction of 38% by Em's Biplane. Moderate global LV hypokinesis is present. There is Grade I (mild) diastolic dysfunction. Right Ventricle The right ventricular size appears to be grossly normal. Systolic function is moderately reduced. RV S' 8 cm/sec. Abnormal TAPSE (< 17 mm), measuring 12 mm. Left Atrium Left atrium cavity size is normal. Right Atrium Right atrium was not well visualized. IVC/SVC RA pressures is estimated to be 3 mmHg (IVC diameter <21 mm and decreases >50% during inspiration). Mitral Valve The leaflets are mildly thickened. Mitral regurgitation not assessed due to limited exam. Mitral stenosis not assessed due to limited exam. Tricuspid Valve Tricuspid valve structure is normal. There is mild to moderate regurgitation. There is no evidence of tricuspid valve stenosis. The right ventricular systolic pressure is normal. The RVSP is estimated at 28 mmHg. Aortic Valve Number of aortic valve cusps cannot be determined. The leaflets are mildly thickened. The leaflets are calcified. Aortic regurgitation not assessed due to limited exam. Aortic stenosis not assessed due to limited exam. Pulmonic Valve The pulmonic valve was not assessed. Pulmonic valve not assessed due to limited exam. Pulmonic valve stenosis not assessed due to limited exam. Ascending Aorta The aorta was not assessed. Pericardium Pericardium appears normal. There is no pericardial effusion. Study Details Overall the study quality was technically difficult. Definity contrast was given to enhance imaging. Study was difficult due to: procedure performed with the patient in a supine position. us Sonali Lyons MD CV ECHO PROCEDURES Final Resu lt * Blood Culture, Peripheral Draw #2 (05/21/2025 9:04 AM EDT) Only the most recent of4 resultswithin the time period is included. Culture, Blood No growth at 5 days 05/26/2025 10:01 AM EDT [facility] Blood Venous blood specimen / Unknown Venipuncture / Unknown 05/21/2025 9:04 AM EDT 05/21/2025 9:11 AM EDT Benoit Cullen DO LAB MICROBIOLOGY - GENERAL O RDERABLES Final Result Performing Organization Address City/[facility]/ZIP Co de Phone Number [facility] [address] [place] [address], [place] [phone] * Urea nitrogen, urine (05/21/2025 6:21 AM EDT) Urea Nitrogen, Ur 495 mg/dL LAB CHEMISTRY METHOD 05/21/2025 8:09 AM EDT [facility] Urine Urine specimen obtained by clean catch procedure / Unknown Non-blood Collection / Unknown 05/21/2025 6:21 AM EDT 05/21/2025 6:33 AM EDT us Benoit Cullen DO LAB URINE ORDERABLES Final R esult Performing Organization Address City/[facility]/ZIP Co de Phone Number [facility] [address] [place] [address], [place] [phone] * Sodium, urine, random (05/21/2025 6:21 AM EDT) Sodium, Ur 57 mmol/L LAB CHEMISTRY METHOD 05/21/2025 8:09 AM EDT [facility] Urine Urine specimen obtained by clean catch procedure / Unknown Non-blood Collection / Unknown 05/21/2025 6:21 AM EDT 05/21/2025 6:33 AM EDT [facility]INE ORDERABLES Final R [facility] Performing Organization Address City/[facility]/ZIP Co de Phone Number [facility] [address] [place] [address], [place] [phone] * Creatinine, urine, random (05/21/2025 6:21 AM EDT) Pathologist [facility] Creatinine, Urine 40.0 mg/dL LAB CHEMISTRY METHOD 05/21/2025 8:09 AM EDT [facility] Urine Urine specimen obtained by clean catch procedure / Unknown Non-blood Collection / Unknown 05/21/2025 6:21 AM EDT 05/21/2025 6:33 AM EDT Benoit Cullen [facility] URINE ORDERABLES Final [facility] Performing Organization Address [facility] Co de Phone Number [facility] [address] [place] [address], [place] [phone] * (ABNORMAL) Troponin I high sensitivity (05/21/2025 4:56 AM EDT) Only the most recent of7 resultswithin the time period is included. High Sensitivity Troponin I 86(H) <=79 ng/L LAB CHEMISTRY METHOD 05/21/2025 5:49 AM EDT [facility] Blood Blood sample taken from central line / Unknown Existing Catheter / Unknown 05/21/2025 4:56 AM EDT 05/21/2025 5:25 AM EDT Narrative [facility] - 05/21/2025 5:49 AM EDT High levels of biotin in samples may falsely decrease hsTroponin values. Use caution when interpreting hsTroponin results in patients taking biotin who exhibit renal impairment (eGFR <60) or in patients taking more than 20 mg/day of biotin. Donna GRANADOS LAB BLOOD ORDERABLES Final Result Performing Organization Address [facility]/ZIP Co de Phone Number [facility] [address] [place] [address], [place] [phone] * Thyroid stimulating hormone with reflex to free t4 and free t3 (05/21/2025 4:56 AM EDT) [facility] TSH 2.71 0.40 - 4.00 mcIU/mL LAB CHEMISTRY METHOD 05/21/2025 9:46 AM EDT [facility] Blood Blood sample taken from central line / Unknown Existing Catheter / Unknown 05/21/2025 4:56 AM EDT 05/21/2025 5:25 AM EDT Benoit Cullen DO LAB BLOOD ORDERABLES Final R esult Performing Organization Address [facility] Co de Phone Number [facility] [address] [place] [address], [place] [phone] * (ABNORMAL) Manual differential (05/21/2025 4:56 AM EDT) Only the most recent of3 resultswithin the time period is included. [facility] Neutrophils % 89.0 % LAB HEMETOLOGY METHOD 05/21/2025 6:15 AM EDT [facility] Bands % 7.0 % LAB HEMETOLOGY METHOD 05/21/2025 6:15 AM EDT [facility] Lymphocytes % 1.0 % LAB HEMETOLOGY METHOD 05/21/2025 6:15 AM EDT [facility] Reactive Lymphocyte 1.00 % LAB HEMETOLOGY METHOD 05/21/2025 6:15 AM EDT [facility] Monocytes % 2.0 % LAB HEMETOLOGY METHOD 05/21/2025 6:15 AM [facility] Eosinophils % 1.0 % LAB HEMETOLOGY METHOD 05/21/2025 6:15 AM [facility] Basophils % 0.0 % LAB HEMETOLOGY METHOD 05/21/2025 6:15 AM [facility] Neutrophils Absolute Manual 23.50(H) 1.50 - 7.00 K/mcL LAB HEMETOLOGY METHOD 05/21/2025 6:15 AM [facility] Bands Absolute Manual 1.85(H) 0.00 - 0.00 K/mcL LAB HEMETOLOGY METHOD 05/21/2025 6:15 AM [facility] Lymphocytes Absolute 0.26(L) 1.00 - 5.00 K/mcL LAB HEMETOLOGY METHOD 05/21/2025 6:15 AM [facility] Reactive Lymph Abs Manual 0.26(H) 0.00 - 0.00 lym LAB HEMETOLOGY METHOD 05/21/2025 6:15 AM [facility] Monocytes Absolute Manual 0.53 0.20 - 1.00 K/mcL LAB HEMETOLOGY METHOD 05/21/2025 6:15 AM [facility] Eosinophils Absolute Manual 0.26 0.00 - 0.50 K/mcL LAB HEMETOLOGY METHOD 05/21/2025 6:15 AM [facility] Basophils Absolute Manual 0.00 0.00 - 0.20 K/mcL LAB HEMETOLOGY METHOD 05/21/2025 6:15 AM [facility] Rbc Morphology Present( A) Consistent with indices, Normal for [place] LAB HEMETOLOGY METHOD 05/21/2025 6:[facility]:RBC: Morphology agre es with CBC Platelet Morphology - WAM See Note(A) Normal LAB HEMETOLOGY METHOD 05/21/2025 6:15 AM EDT [facility] Comment:PLT: Large platelets seen Dohle Body Present Present( A) (none) LAB HEMETOLOGY METHOD 05/21/2025 6:15 AM EDT [facility] Blood Blood sample taken from central line / Unknown Existing Catheter / Unknown 05/21/2025 4:56 AM EDT 05/21/2025 5:25 AM EDT Donna GRANADOS LAB BLOOD ORDERABLES Final Result [facility] [address] [place] [address], [place] [phone] * Lactate (05/21/2025 4:56 AM EDT) Only the most recent of4 resultswithin the time period is included. Pathologist [facility] Lactate 1.1 0.4 - 2.0 mmol/L LAB CHEMISTRY METHOD 05/21/2025 5:51 AM EDT [facility] Blood Blood sample taken from central line / Unknown Existing Catheter / Unknown 05/21/2025 4:56 AM EDT 05/21/2025 5:23 AM EDT us Donna GRANADOS LAB BLOOD ORDERABLES Final Result [facility] [address] [place] [address], [place] [phone] * (ABNORMAL) Hepatic function panel (05/21/2025 4:56 AM EDT) Total Protein 4.3(L) 6.0 - 8.0 g/dL LAB CHEMISTRY METHOD 05/21/2025 5:52 AM EDT [facility] Albumin 1.6(L) 3.2 - 5.0 g/dL LAB CHEMISTRY METHOD 05/21/2025 5:52 AM EDT [facility] Total Bilirubin 0.4 0.0 - 1.4 mg/dL LAB CHEMISTRY METHOD 05/21/2025 5:52 AM EDT [facility] Bilirubin, Direct 0.2 0.0 - 0.3 mg/dL LAB CHEMISTRY METHOD 05/21/2025 5:52 AM EDT [facility] Bilirubin, Indirect 0.2 0.0 - 1.1 mg/dL LAB CHEMISTRY METHOD 05/21/2025 5:52 AM EDT [facility] ALT (SGPT) 55 10 - 60 unit/L LAB CHEMISTRY METHOD 05/21/2025 5:52 AM T [facility] AST (SGOT) 53(H) 10 - 42 unit/L LAB CHEMISTRY METHOD 05/21/2025 5:52 AM T [facility] Alkaline Phosphatase 198(H) 42 - 121 unit/L LAB CHEMISTRY METHOD 05/21/2025 5:52 AM T [facility] Blood Blood sample taken from central line / Unknown Existing Catheter / Unknown 05/21/2025 4:56 AM EDT 05/21/2025 5:25 AM EDT Donna GRANADOS LAB BLOOD ORDERABLES Final Result [facility] [address] [place] [address], * MRSA molecular study (05/20/2025 10:45 PM EDT) Only the most recent of2 resultswithin the time period is included. MRSA Screen PCR Not Detected Not Detected LAB MICROBIOLOGY METHOD 05/21/2025 12:59 AM EDT [facility] Swab Both anterior nares / Unknown Non-blood Collection / Unknown 05/20/2025 10:45 PM EDT 05/20/2025 11:41 PM EDT us Sonali Lyons MD LAB MICROBIOLOGY - GENERAL OR DERABLES Final Result [facility] [address] [place] [address], * XR Urogram Retrograde (05/20/2025 7:44 PM EDT) Anatomical Region Laterality Modality Body Radio Fluoroscop y 05/21/2025 7:33 AM EDT Narrative 05/21/2025 7:34 AM EDT Fluoroscopic spot radiographs obtained during a bilateral endourologic procedure are submitted. No radiologist consultation was requested or provided during this procedure and there is no radiologist professional charge. This report is generated for documentation purposes only. The dose-area product for this procedure was 0.7176 Gy*cm2. PQRI CPT II G9500 -------- FINAL REPORT -------- Dictated By: Tyrone Soliman Dictated Date: 05/21/2025 07:33 ET Assigned Physician: Tyrone Soliman Reviewed and Electronically Signed By: Tyrone Soliman Signed Date: 05/21/2025 07:34 ET Workstation ID: [id number] Transcribed By: Self Edit Transcribed Date: 05/21/2025 07:33 ET Procedure Note Tyrone Soliman MD - 05/21/2025 Fluoroscopic spot radiographs obtained during a bilateral endourologicprocedure are submitted. No radiologist consultation was requested orprovided during this procedure and there is no radiologist professionalcharge. This report is generated for documentation purposes only. The dose-area product for this procedure was 0.7176 Gy*cm2. PQRI CPT II G9500 -------- FINAL REPORT -------- Dictated By: Tyrone Soliman Dictated Date: 05/21/2025 07:33 ET Assigned Physician: Tyrone Soliman Reviewed and Electronically Signed By: Tyrone Soliman Signed Date: 05/21/2025 07:34 ET Workstation ID: [id number] Transcribed By: Self Edit Transcribed Date: 05/21/2025 07:33 ET Lyndon Matta MD IMG FLUOROSCOPY PROCEDURES F inal Result * (ABNORMAL) Culture urine (05/20/2025 7:35 PM EDT) Only the most recent of2 resultswithin the time period is included. Culture, Urine >=100,000 CFU/mL Escherichia coli(A) SHARMIN 05/23/2025 10:45 AM EDT [facility] Comment: The organism value for this result has been updated. These results have been appended to the previously preliminary verified report. This is an edited result. Previous organism was Gram negative bacilli on 05/22/2025 at 1127 EDT. Urine Urinary bladder structure / Unknown 05/20/2025 7:35 PM EDT 05/20/2025 8:16 PM EDT Narrative Organism Antibiotic Method Susceptibility Escherichia coli Amoxicillin/Clavulanate SHARMIN <=2 ug/ml: Susceptible Escherichia coli Ampicillin/Sulbactam SHARMIN <=2 ug/ml: Susceptible Escherichia coli Piperacillin/Tazobactam SHARMIN <=4 ug/ml: Susceptible Escherichia coli Cefazolin (Urine) SHARMIN <=1 ug/ml: Susceptible Escherichia coli Cefoxitin SHARMIN <=4 ug/ml: Susceptible Escherichia coli Ceftazidime SHARMIN <=0.5 ug/ml: Susceptible Escherichia coli Ceftriaxone SHARMIN <=0.25 ug/ml: Susceptible Escherichia coli Cefepime SHARMIN <=0.12 ug/ml: Susceptible Escherichia coli Meropenem SHARMIN <=0.25 ug/ml: Susceptible Escherichia coli Amikacin SHARMIN <=1 ug/ml: Susceptible Escherichia coli Gentamicin SHARMIN <=1 ug/ml: Susceptible Escherichia coli Ciprofloxacin SHARMIN <=0.06 ug/ml: Susceptible Escherichia coli Levofloxacin SAHRMIN <=0.12 ug/ml: Susceptible Escherichia coli Nitrofurantoin SHARMIN 64 ug/ml: Intermediate Escherichia coli Trimethoprim/Sulfamethoxazole SHARMIN <=20 ug/ml: Susceptible Lyndon Matta MD LAB MICROBIOLOGY - GENERAL O RDERABLES Final Result [facility]) [facility] [address] [place] [address], [place] [phone] * Prothrombin time with INR (05/20/2025 5:21 PM EDT) [facility] Protime 13.7 10.6 - 13.9 sec LAB COAGULATION METHOD 05/20/2025 5:48 PM EDT [facility] INR 1.1 LAB COAGULATION METHOD 05/20/2025 5:48 PM EDT [facility] Blood Blood sample taken from central line / Unknown Venipuncture / Unknown 05/20/2025 5:21 PM EDT 05/20/2025 5:29 PM EDT us Sonali Lyons MD LAB BLOOD ORDERABLES Final Re sult Performing Organization Address [facility]/ZIP Co de Phone Number [facility] [address] [place] [address], [place] [phone] * Creatine kinase and CKMB (05/20/2025 10:21 AM EDT) [facility] Total CK 109 22 - 269 unit/L LAB CHEMISTRY METHOD 05/20/2025 11:39 AM EDT [facility] CK-MB 3.1 1.0 - 3.6 ng/mL LAB CHEMISTRY METHOD 05/20/2025 11:39 AM EDT [facility] CK-MB Index 0.0 0.0 - 5.0 LAB CHEMISTRY METHOD 05/20/2025 11:39 AM EDT [facility] Blood Venous blood specimen / Unknown Venipuncture / Unknown 05/20/2025 10:21 AM EDT 05/20/2025 11:06 AM EDT us Sonali Lyons MD LAB BLOOD ORDERABLES Final Re sult Performing Organization Address City/[facility]/ZIP Co de Phone Number [facility] [address] [place], [place] [address] [phone] * Respiratory virus panel molecular study (05/20/2025 10:18 AM EDT) [facility] Adenovirus Detection by PCR Not Detected Not Detected LAB MICROBIOLOGY METHOD 05/20/2025 12:21 PM EDT [facility] Influenza A PCR Not Detected Not Detected LAB MICROBIOLOGY METHOD 05/20/2025 12:21 PM EDT [facility] Influenza B PCR Not Detected Not Detected LAB MICROBIOLOGY METHOD 05/20/2025 12:21 PM EDT [facility] Coronavirus 229E Not Detected Not Detected LAB MICROBIOLOGY METHOD 05/20/2025 12:21 PM EDT [facility] Coronavirus HKU1 Not Detected Not Detected LAB MICROBIOLOGY METHOD 05/20/2025 12:21 PM EDT [facility] Coronavirus OC43 Not Detected Not Detected LAB MICROBIOLOGY METHOD 05/20/2025 12:21 PM EDT [facility] Coronavirus NL63 Not Detected Not Detected LAB MICROBIOLOGY METHOD 05/20/2025 12:21 PM EDT [facility] Parainfluenza Virus 1 Not Detected Not Detected LAB MICROBIOLOGY METHOD 05/20/2025 12:21 PM EDT [facility] Parainfluenza Virus 2 Not Detected Not Detected LAB MICROBIOLOGY METHOD 05/20/2025 12:21 PM EDT [facility] Parainfluenza Virus 3 Not Detected Not Detected LAB MICROBIOLOGY METHOD 05/20/2025 12:21 PM EDT [facility] Parainfluenza Virus 4 Not Detected Not Detected LAB MICROBIOLOGY METHOD 05/20/2025 12:21 PM EDT [facility] RSV PCR Not Detected Not Detected LAB MICROBIOLOGY METHOD 05/20/2025 12:21 PM EDT [facility] Human Metapneumovirus A and B Not Detected Not Detected LAB MICROBIOLOGY METHOD 05/20/2025 12:21 PM EDT [facility] Rhinovirus/Entero virus Not Detected Not Detected LAB MICROBIOLOGY METHOD 05/20/2025 12:21 PM EDT [facility] Bordetella pertussis Not Detected Not Detected LAB MICROBIOLOGY METHOD 05/20/2025 12:21 PM EDT [facility] Bordetella parapertussis Not Detected Not Detected LAB MICROBIOLOGY METHOD 05/20/2025 12:21 PM EDT [facility] Mycoplasma pneumo by PCR Not Detected Not Detected LAB MICROBIOLOGY METHOD 05/20/2025 12:21 PM EDT [facility] Chlamydia pneumoniae Not Detected Not Detected LAB MICROBIOLOGY METHOD 05/20/2025 12:21 PM EDT [facility] SARS COV-2 Not Detected Not Detected LAB MICROBIOLOGY METHOD 05/20/2025 12:21 PM EDT [facility] Swab Both anterior nares / Unknown Non-blood Collection / Unknown 05/20/2025 10:18 AM EDT 05/20/2025 11:05 AM EDT Narrative [facility] - 05/20/2025 12:21 PM EDT Testing was performed using the [employer] Respiratory Pathogen PCR Assay. All results must be correlated with the clinical findings. Results should not be used as the sole basis for diagnosis. False Negative results may occur from the presence of sequence variants in the region targeted by the assay or the presence of inhibitors. Results may be affected by concurrent antiviral/antimicrobial therapy or levels of organisms that are below the limit of detection. us Misael Adams MD LAB MICROBIOLOGY - GENER AL ORDERABLES Final Result [facility] [address] [place] [address], * ECG 12 lead (05/20/2025 10:07 AM EDT) Only the most recent of2 resultswithin the time period is included. Ventricular Rate ECG 90 BPM GEMUSE Atrial Rate 90 BPM GEMUSE P-R Interval 164 ms GEMUSE QRS Duration 94 ms GEMUSE Q-T Interval 388 ms GEMUSE QTc 474 ms GEMUSE P Wave [place] 60 degrees GEMUSE R [place] 70 degrees GEMUSE T [place] 69 degrees GEMUSE ECG Interpretation Normal sinus rhythm Nonspecific ST abnormality Abnormal ECG When compared with ECG of 20-MAY-2025 04:51, Sinus rhythm has replaced Atrial fibrillation Vent. rate has decreased BY 76 BPM Nonspecific T wave abnormality no longer evident in Inferior leads Nonspecific T wave abnormality no longer evident in Lateral leads Confirmed by MARIAH CALDWELL ([id number]) on 05/20/2025 3:43:25 PM GEMUSE 05/20/2025 10:0 7 AM EDT 05/20/2025 3:43 PM EDT us Jamie Alcazar MD ECG ORDERABLES Final Resul t GEMUSE * CT Chest/Abdomen/Pelvis wo Contrast (05/20/2025 9:29 AM EDT) Anatomical Region Laterality Modality Body Computed Tomogra phy 05/20/2025 9:41 AM EDT Impressions 05/20/2025 10:02 AM EDT Mild pulmonary edema. Proximal left ureteral calculus measuring 11 mm with moderate left hydronephrosis. Right UVJ calculus measuring 10 mm with hydronephrosis. 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 MRI recommended in 6 months without and with contrast to ensure stability. -------- FINAL REPORT -------- Dictated By: SUMAN LINTON Dictated Date: 05/20/2025 09:41 ET Assigned Physician: SUMAN LINTON Reviewed and Electronically Signed By: SUMAN LINTON Signed Date: 05/20/2025 10:02 ET Workstation ID: [id number] Transcribed By: Self Edit Transcribed Date: 05/20/2025 09:41 ET Narrative 05/20/2025 10:02 AM EDT PROCEDURE: Chest, abdomen, and pelvis CT INDICATION: Nausea/vomiting, pain TECHNIQUE: Chest, abdomen, and pelvis CT without contrast. Multi planar reformats were created and interpreted. The examination was performed utilizing dose reduction techniques. Total DLP 896 COMPARISON: 11/10/2023 FINDINGS: Chest: Central airways are patent. Septal thickening throughout the lungs, most pronounced at the lung apices. No pleural effusion or pneumothorax. Bibasilar atelectasis Thyroid gland is within normal limits. Right IJ catheter terminates in the SVC. No mediastinal or hilar lymphadenopathy. Mild coronary artery calcifications. Cardiac chambers are normal in size. No pericardial effusion. Esophagus is normal. No axillary adenopathy. Subcutaneous lipoma superficial to the right deltoid muscle. Bones are normal for age. Abdomen/pelvis: Hepatic steatosis. No focal liver lesions. Contracted gallbladder. No calcified gallstones or biliary duct dilatation. No solid pancreatic mass or ductal dilatation. Multiple cystic lesions are seen throughout the pancreatic body and tail measuring up to 12 mm. Spleen and adrenal glands are normal. Moderate left hydronephrosis with 11 mm proximal left ureteral calculus. Multiple additional left renal calculi measuring up to 10 mm left lower pole. No right hydronephrosis. Right UVJ calculus measures 10 mm. [place] catheter within decompressed bladder. Prostate is within normal limits. No pelvic lymphadenopathy. No bowel obstruction or wall thickening. Normal appendix. No fluid collection or free intraperitoneal air. Left greater than right perinephric stranding with trace ascites. No retroperitoneal or mesenteric lymphadenopathy. Abdominal aorta is normal in size. 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 Degenerative changes seen throughout the bones. No superficial soft tissue mass. Atrophic right gluteal musculature. Procedure Note Suman Linton MD - 05/20/2025 PROCEDURE: Chest, abdomen, and pelvis CT INDICATION: Nausea/vomiting, pain TECHNIQUE: Chest, abdomen, and pelvis CT without contrast. Multi planarreformats were created and interpreted. The examination was performedutilizing dose reduction techniques. Total DLP 896 COMPARISON: 11/10/2023 FINDINGS: Chest: Central airways are patent. Septal thickening throughout the lungs, mostpronounced at the lung apices. No pleural effusion or pneumothorax.Bibasilar atelectasis Thyroid gland is within normal limits. Right IJ catheter terminates inthe SVC. No mediastinal or hilar lymphadenopathy. Mild coronary arterycalcifications. Cardiac chambers are normal in size. No pericardialeffusion. Esophagus is normal. No axillary adenopathy. Subcutaneous lipoma superficial to the rightdeltoid muscle. Bones are normal for age. Abdomen/pelvis: Hepatic steatosis. No focal liver lesions. Contracted gallbladder. Nocalcified gallstones or biliary duct dilatation. No solid pancreatic mass or ductal dilatation. Multiple cystic lesionsare seen throughout the pancreatic body and tail measuring up to 12 mm. Spleen and adrenal glands are normal. Moderate left hydronephrosis with 11 mm proximal left ureteral calculus.Multiple additional left renal calculi measuring up to 10 mm left lowerpole. No right hydronephrosis. Right UVJ calculus measures 10 mm. [place]ett catheter within decompressed bladder. Prostate is within normallimits. No pelvic lymphadenopathy. No bowel obstruction or wall thickening. Normal appendix. No fluidcollection or free intraperitoneal air. Left greater than rightperinephric stranding with trace ascites. No retroperitoneal or mesenteric lymphadenopathy. Abdominal aorta isnormal in size. Postsurgical changes in the lower lumbar spine with pseudomeningoceleposterior to L5. Degenerative changes seen throughout the bones. Nosuperficial soft tissue mass. Atrophic right gluteal musculature. IMPRESSION: Mild pulmonary edema. Proximal left ureteral calculus measuring 11 mm with moderate lefthydronephrosis. Right UVJ calculus measuring 10 mm with hydronephrosis. 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 MRIrecommended in 6 months without and with contrast to ensure stability. -------- FINAL REPORT -------- Dictated By: SUMAN LINTON Dictated Date: 05/20/2025 09:41 ET Assigned Physician: SUMAN LINTON Reviewed and Electronically Signed By: SUMAN LINTON Signed Date: 05/20/2025 10:02 ET Workstation ID: [id number] Transcribed By: Self Edit Transcribed Date: 05/20/2025 09:41 ET us Jamie Alcazar MD IMG CT PROCEDURES Final Res ult * Pathology review, blood smear (05/20/2025 9:02 AM EDT) Pathologist Review Blood Smear Granulocytosis : consider infection or other reactive process. Normocytic anemia: smear not diagnostic of etiology. Note: Clinical correlation and follow-up is recommended. 05/20/2025 12:48 PM EDT [facility] Blood Venous blood specimen / Unknown Venipuncture / Unknown 05/20/2025 9:02 AM EDT 05/20/2025 9:21 AM EDT Sonali Lyons MD LAB BLOOD ORDERABLES Final Re sult Performing Organization Address [facility] Co de Phone Number [facility] [address] [place] [address], [place] [phone] * (ABNORMAL) Ammonia (05/20/2025 9:02 AM EDT) Pathologist [facility] Ammonia <10(L) 11 - 35 mcmol/L LAB CHEMISTRY METHOD 05/20/2025 9:50 AM EDT [facility] Blood Venous blood specimen / Unknown Venipuncture / Unknown 05/20/2025 9:02 AM EDT 05/20/2025 9:21 AM EDT Sonali Lyons MD LAB BLOOD ORDERABLES Final Re sult Performing Organization Address [facility] Co de Phone Number [facility] [address] [place] [address], [place] [phone] * (ABNORMAL) TRANSTHORACIC ECHOCARDIOGRAM (TTE) COMPLETE W/ CONTRAST (05/20/2025 8:16 AM EDT) RA Area 18.7 cm2 CV PACS RA 2D Volume 55 mL CV PACS Aortic Sinus Valsalva 3.4 cm CV PACS Ascending Aorta 3.5 cm CV PACS IVSD 0.8 0.6 - 1.0 cm CV PACS LVIDD 4.9 4.2 - 5.8 cm CV PACS LVIDS 4.0 2.5 - 4.0 cm CV PACS LVOT Diameter 2.1 cm CV PACS LVOT Mean Claudio 0.5 m/s CV PACS LVOT Mean Grad 1 mmHg CV PACS LVOT Mean Grad 1 mmHg CV PACS LVOT Mean Grad 1 mmHg CV PACS LVOT Peak VTI 8.9 cm CV PACS LVOT Peak Claudio 0.7 m/s CV PACS LVOT Peak Gradient 2 mmHg CV PACS LVPWD 1.0 0.6 - 1.0 cm CV PACS MV E' Tissue Velocity Lateral 7 cm/s CV PACS MV E' Tissue Velocity Septal 6 cm/s CV PACS LVOT Area 3.5 cm2 CV PACS LVOT Stroke Volume 31 mL CV PACS MV Deceleration [place] 1.8 m/s2 CV PACS E Wave Deceleration Time 240 119 - 242 ms CV PACS MV PHT 70 ms CV PACS MV Peak A Claudio 0.45 m/s CV PACS MV Peak E [place] 0.42 m/s CV PACS MV Area PHT 3.1 cm2 CV PACS RV Diastolic Basal Dimension 4.4(A) 2.5 - 4.1 cm CV PACS RV S' 9 cm/s CV PACS TAPSE 12 mm CV PACS TR Peak Velocity 2.21 m/s CV PACS TR Peak Gradient 20 mmHg CV PACS E/E' Ratio Septal 7 CV PACS E/E' Ratio Averaged 7 CV PACS LVOT Stroke Index 16 mL/m2 CV PACS Relative Wall Thickness ratio 0.41 CV PACS FS 18 % CV PACS LV Mass 2D 153 g CV PACS Ascending Aorta Index 1.80 cm/m2 CV PACS LVOT flow 173 mL/s CV PACS RA 2D Volume Index 28 mL/m2 CV PACS LVIDD Index 2.53 cm/m2 CV PACS LVIDS Index 2.06 cm/m2 CV PACS E/A Ratio 0.9 CV PACS E/E' Ratio Lateral 6 CV PACS LV Mass Index 2D 79 g/m2 CV PACS BSA 1.94 m2 CV PACS LV EDV (A2C) 136 mL CV PACS LV EDV (A4C) 130 mL CV PACS LV Diastolic Volume (BP) 133 62 - 150 mL CV PACS LV ESV (A2C) 98 mL CV PACS LV ESV (A4C) 74 mL CV PACS LV Systolic Volume (BP) 86(A) 21 - 61 mL CV PACS Ejection Fraction (A2C) 28 % CV PACS Ejection Fraction (A4C) 43 % CV PACS Ejection Fraction (BP) 35 % CV PACS LV ESV Index (A4C) 38 mL/m2 CV PACS LV EDV Index (A4C) 67 mL/m2 CV PACS LV Systolic Volume Index (BP) 44 mL/m2 CV PACS LV Diastolic Volume Index (BP) 69 mL/m2 CV PACS LV EDV Index (A2C) 70 mL/m2 CV PACS LV ESV Index (A2C) 51 mL/m2 CV PACS Right Ventricular Peak Systolic Pressure 35 mmHg CV PACS Est. RA Pressure 15 mmHg CV PACS Anatomical Region Laterality Modality Ultrasound Narrative 05/20/2025 10:06 AM EDT Left ventricle cavity size is normal. Wall thickness is normal. Systolic function is severely decreased with an ejection fraction of 25-30%. Global LV hypokinesis is present. Indeterminate diastolic function. Right ventricle cavity is dilated. Systolic function is moderately reduced. Right atrium cavity is mildly dilated. Estimated RA pressure is 15 mmHg. The RVSP is estimated at 35 mmHg. Tricuspid Valve:Tricuspid valve demonstrates moderate regurgitation. See remainder of the report for additional findings. Left Ventricle Left ventricle cavity size is normal. Wall thickness is normal. Systolic function is severely decreased with an ejection fraction of 25-30%. Global LV hypokinesis is present. Indeterminate diastolic function. Right Ventricle Right ventricle cavity is dilated. Systolic function is moderately reduced. Left Atrium Not measured due to off axis imaging. Right Atrium Right atrium cavity is mildly dilated. IVC/SVC RA pressures is estimated to be 15 mmHg (IVC diameter >21 mm and decreases <50% during inspiration). Mitral Valve The leaflets are mildly thickened. There is mild regurgitation. There is no evidence of mitral valve stenosis. Tricuspid Valve Tricuspid valve structure is normal. There is moderate regurgitation. There is no evidence of tricuspid valve stenosis. Estimated RA pressure is 15 mmHg. The RVSP is estimated at 35 mmHg. Aortic Valve The aortic valve is trileaflet. There is no regurgitation or stenosis. Pulmonic Valve There is no regurgitation or stenosis. Ascending Aorta The aorta appears normal in size. Pericardium Pericardium appears normal. There is no pericardial effusion. Study Details Overall the study quality was adequate. Study was difficult due to: procedure performed with the patient in a supine position. Mariah Caldwell MD CV ECHO PROCEDURES Fin al Result * MS INSERTION NON-TUNNELED CENTRALLY INSERTED CENTRAL VENOUS CATH 5 YRS/>, HC INSERTION/REMOVAL/REPLACEMENT CATH (05/20/2025 7:34 AM EDT) Jamie Levine MD - 05/20/2025 7:34 AM EDT Jamie Alcazar MD 05/25/2025 7:44 AM Central Line Date/Time: 05/20/2025 7:34 AM Performed by: Jamie Alcazar MD Authorized by: Jamie Alcazar MD Consent: Consent obtained: Emergent situation [place] protocol: Patient identity confirmed: Arm band Pre-procedure details: Indication(s): central venous access, hemodynamic monitoring and insufficient peripheral access Hand hygiene: Hand hygiene performed prior to insertion Skin preparation: Chlorhexidine with alcohol Skin preparation agent: Skin preparation agent completely dried prior to procedure Sedation: Sedation type: None Anesthesia: Anesthesia method: Local infiltration Local anesthetic: Lidocaine 1% w/o epi Procedure details: Location: R internal jugular Patient position: Supine Procedural supplies: Triple lumen Catheter size: 7 Fr Ultrasound guidance: yes Ultrasound guidance timing: real time Sterile ultrasound techniques: Sterile gel and sterile probe covers were used Number of attempts: 2 Successful placement: yes Post-procedure details: Post-procedure: Dressing applied and line sutured Assessment: Blood return through all ports, no pneumothorax on x-ray and free fluid flow Procedure completion: Tolerated Jamie Alcazar MD IN CLINIC/BEDSIDE ORDERABLE S Final Result * XR Chest 1 View (05/20/2025 6:23 AM EDT) Anatomical Region Laterality Modality Body Radiographic [place] 05/20/2025 8:13 AM EDT Impressions 05/20/2025 8:14 AM EDT No acute findings. -------- FINAL REPORT -------- Dictated By: Tobin Orozco Dictated Date: 05/20/2025 08:13 ET Assigned Physician: Tobin Orozco Reviewed and Electronically Signed By: Tobin Orozco Signed Date: 05/20/2025 08:14 ET Workstation ID: [id number] Transcribed By: Self Edit Transcribed Date: 05/20/2025 08:13 ET Narrative 05/20/2025 8:14 AM EDT PROCEDURE: AP chest radiograph. HISTORY: tachyarrhythmia. COMPARISON: None. FINDINGS: Right internal jugular central venous catheter with the tip in the SVC. 2 defibrillator pads project over the left hemithorax. No pneumothorax. No visible pleural effusion. Heart size within normal limits for portable AP technique. Procedure Note Tobin Orozco MD - 05/20/2025 PROCEDURE: AP chest radiograph. HISTORY: tachyarrhythmia. COMPARISON: None. FINDINGS: Right internal jugular central venous catheter with the tip in the SVC. 2defibrillator pads project over the left hemithorax. No pneumothorax. Novisible pleural effusion. Heart size within normal limits for portable APtechnique. IMPRESSION: No acute findings. -------- FINAL REPORT -------- Dictated By: Tobin Orozco Dictated Date: 05/20/2025 08:13 ET Assigned Physician: Tobin Orozco Reviewed and Electronically Signed By: Tobin Orozco Signed Date: 05/20/2025 08:14 ET Workstation ID: [id number] Transcribed By: Self Edit Transcribed Date: 05/20/2025 08:13 ET us Jmaie Alcazar MD IMG XR PROCEDURES Final Res ult * (ABNORMAL) Urinalysis with reflex microscopic and culture (05/20/2025 6:22 AM EDT) Pathologist [facility] Specific [place] Urine 1.014 1.003 - 1.030 LAB URINALYSIS - AUTOMATED METHOD 05/20/2025 6:37 AM EDT [facility] pH, Urine 6.0 5.0 - 8.0 pH LAB URINALYSIS - AUTOMATED METHOD 05/20/2025 6:37 AM EDT [facility] Leukocytes, Urine Large(A) Negative LAB URINALYSIS - AUTOMATED METHOD 05/20/2025 6:37 AM EDT [facility] Nitrite, Urine Positive(A) Negative LAB URINALYSIS - AUTOMATED METHOD 05/20/2025 6:37 AM [facility] Protein, Urine 30(A) <=Trace mg/dL LAB URINALYSIS - AUTOMATED METHOD 05/20/2025 6:37 AM [facility] Glucose, Urine Negative Negative mg/dL LAB URINALYSIS - AUTOMATED METHOD 05/20/2025 6:37 AM [facility] Ketones, Urine Negative Negative mg/dL LAB URINALYSIS - AUTOMATED METHOD 05/20/2025 6:37 AM [facility] Urobilinogen , Urine 0.2 0.2 - 1.0 mg/dL LAB URINALYSIS - AUTOMATED METHOD 05/20/2025 6:37 AM [facility] Bilirubin, Urine Negative Negative LAB URINALYSIS - AUTOMATED METHOD 05/20/2025 6:37 AM [facility] Blood, Urine Moderate(A) Negative LAB URINALYSIS - AUTOMATED METHOD 05/20/2025 6:37 AM [facility] RBC, Urine 10.6(H) 0 - 4 /HPF LAB URINALYSIS - AUTOMATED METHOD 05/20/2025 6:37 AM [facility] WBC, Urine 167.0(H) 0 - 4 /HPF LAB URINALYSIS - AUTOMATED METHOD 05/20/2025 6:37 AM [facility] Squamous Epithelial, Urine 7 0 - 60 /LPF LAB URINALYSIS - AUTOMATED METHOD 05/20/2025 6:37 AM [facility] Bacteria, Urine Many(A) Negative /HPF LAB URINALYSIS - AUTOMATED METHOD 05/20/2025 6:37 AM [facility] Hyaline Casts, Urine 1.2 0 - 3 /LPF LAB URINALYSIS - AUTOMATED METHOD 05/20/2025 6:37 AM [facility] Urine Urine specimen obtained by clean catch procedure / Unknown Non-blood Collection / Unknown 05/20/2025 6:22 AM EDT 05/20/2025 6:27 AM EDT Jamie Alcazar MD LAB URINE ORDERABLES Final Result Performing Organization Address [facility]/ZIP Co de Phone Number [facility] [address] [place] [address], [place] [phone] * Laguerre urine culture tube (05/20/2025 6:22 AM EDT) Extra Tube Hold for add-ons. 05/20/2025 8:01 AM EDT [facility] Comment:Auto resulted. Urine Urine specimen obtained by clean catch procedure / Unknown Non-blood Collection / Unknown 05/20/2025 6:22 AM EDT 05/20/2025 6:27 AM EDT Jamie Alcazar MD LAB URINE ORDERABLES Final Result Performing Organization Address [facility] Co de Phone Number [facility] [address] [place] [address], [place] [phone] * Drug abuse screen 8a panel, urine (05/20/2025 6:22 AM EDT) Amphetamine Screen, Ur Negative Negative LAB CHEMISTRY METHOD 05/20/2025 6:56 AM EDT [facility] Comment:Certain OTC medicati ons containing ephedrine, phenylephrine, pseudoephedrine and phenylpropanolamine can cause false positive results. Barbiturate Screen, Ur Negative Negative LAB CHEMISTRY METHOD 05/20/2025 6:56 AM EDT [facility] Benzodiazepine Screen, Ur Negative Negative LAB CHEMISTRY METHOD 05/20/2025 6:56 AM EDT [facility] Cocaine Screen, Ur Negative Negative LAB CHEMISTRY METHOD 05/20/2025 6:56 AM EDT [facility] Opiate Screen, Ur Negative Negative LAB CHEMISTRY METHOD 05/20/2025 6:56 AM EDT [facility] Cannabinoid (THC) Screen, Ur Negative Negative LAB CHEMISTRY METHOD 05/20/2025 6:56 AM EDT [facility] Comment:Specimens from patie nts taking pantoprazole sodium (Protonix) have been shown to produce false positive results. Oxycodone Screen, Ur Negative Negative LAB CHEMISTRY METHOD 05/20/2025 6:56 AM EDT [facility] Fentanyl, Ur Negative Negative LAB CHEMISTRY METHOD 05/20/2025 6:56 AM T [facility] Urine Urine specimen obtained by clean catch procedure / Unknown Non-blood Collection / Unknown 05/20/2025 6:22 AM EDT 05/20/2025 6:27 AM EDT Narrative [facility] - 05/20/2025 6:56 AM EDT Assay cutoffs: Amphetamines 1000 ng/mL Barbiturates 200 ng/mL Benzodiazepines 200 ng/mL Cocaine 300 ng/mL Fentanyl 1 ng/mL Opiates 300 ng/mL Oxycodone 100 ng/mL THC 50 ng/mL Semi-quantitative assay for screening purposes only. Unconfirmed screening result should not be used for non-medical purposes. *ALTERNATE METHOD CONFIRMATION DONE UPON REQUEST ONLY* us Jamie Alcazar MD LAB URINE ORDERABLES Final Result [facility] [address] [place] [address], * (ABNORMAL) Venous blood gas (05/20/2025 6:19 AM EDT) pH, José 7.35 7.32 - 7.42 pH 05/20/2025 6:28 AM EDT [facility] pCO2, José 36(L) 41 - 51 mmHg 05/20/2025 6:28 AM T [facility] pO2, José 41(H) 25 - 40 mmHg 05/20/2025 6:28 AM EDT [facility] HCO3, Venous 20.2(L) 22.0 - 26.0 mmol/L 05/20/2025 6:28 AM EDT [facility] O2 Sat, José 61.2 % 05/20/2025 6:28 AM EDT [facility] Base Excess, José -5.1(L) -2.0 - 2.0 mmol/L 05/20/2025 6:28 AM EDT [facility] Blood Venous blood specimen / Unknown Venipuncture / Unknown 05/20/2025 6:19 AM EDT 05/20/2025 6:25 AM EDT Jamie Alcazar MD LAB BLOOD ORDERABLES Final Result Performing Organization Address [facility]/ZIP Co de Phone Number [facility] [address] [place] [address], [place] [phone] * (ABNORMAL) Blood culture pathogens molecular study (05/20/2025 5:42 AM EDT) Pathologist [facility] Escherichia coli Detected (A) Not Detected LAB MICROBIOLOGY METHOD 05/20/2025 5:39 PM EDT [facility] Blood Venous blood specimen / Unknown Venipuncture / Unknown 05/20/2025 5:42 AM EDT 05/20/2025 5:42 AM EDT Jamie Alcazar MD LAB MICROBIOLOGY - GENERAL ORDERABLES Final Result [facility] [address] [place] [address], [place] [phone] * Type and screen (05/20/2025 5:34 AM EDT) Pathologist [facility] ABO Group A 05/20/2025 6:36 AM EDT [facility] Rh Type Positive 05/20/2025 6:36 AM EDT [facility] Antibody Screen Negative 05/20/2025 6:36 AM EDT [facility] Blood Venous blood specimen / Unknown Venipuncture / Unknown 05/20/2025 5:34 AM EDT 05/20/2025 5:41 AM EDT Jamie Alcazar MD LAB BLOOD BANK TEST ORDERAB LES Final Result Performing Organization Address City/[facility]/ZIP Co de Phone Number [facility] [address] [place] [address], [place] [phone] * Lipase (05/20/2025 5:34 AM EDT) Lipase 56 13 - 75 unit/L LAB CHEMISTRY METHOD 05/20/2025 6:12 AM EDT [facility] Blood Venous blood specimen / Unknown Venipuncture / Unknown 05/20/2025 5:34 AM EDT 05/20/2025 5:41 AM EDT Jamie Alcazar MD LAB BLOOD ORDERABLES Final Result Performing Organization Address [facility] Co de Phone Number [facility] [address] [place] [address], [place] [phone] * Ethanol (05/20/2025 5:34 AM EDT) Ethanol Level <3 0 - 10 mg/dL LAB CHEMISTRY METHOD 05/20/2025 6:12 AM EDT [facility] Blood Venous blood specimen / Unknown Venipuncture / Unknown 05/20/2025 5:34 AM EDT 05/20/2025 5:41 AM EDT Jamie Alcazar MD LAB BLOOD ORDERABLES Final Result Performing Organization Address City/[facility]/ZIP Co de Phone Number [facility] [address] [place] [address], [place] [phone] * MS CRITICAL CARE 30-74 MINUTES (05/20/2025 4:46 AM EDT) Jamie Levine MD - 05/20/2025 4:46 AM EDT Jamie Alcazar MD 05/25/2025 7:44 AM Critical Care Performed by: Jamie Alcazar MD Authorized by: Jamie Alcazar MD Critical care provider statement: Critical care time (minutes): 90 Total face to face critical care time (minutes): 90 Critical care time was exclusive of: Teaching time Critical care was necessary to treat or prevent imminent or life-threatening deterioration of the following conditions: Sepsis and shock Critical care was time spent personally by me on the following activities: Discussions with consultants, ordering and performing treatments and interventions, ordering and review of laboratory studies and ordering and review of radiographic studies Comments: Patient required extensive management due to his hypotension required pressors and aggressive IV fluids as well as central line placement. ICU consultation. Jamie Alcazar MD IN CLINIC/BEDSIDE ORDERABLE S Final Result * External MRI Report (04/30/2025) Anatomical Region Laterality Modality Magnetic Resonan ce Provider [facility] MRI PROCEDURES Final Result * Depression Screening (01/16/2024) Depression Screening Abstracted Historical Provider HEALTH MAINTENANCE Final Result from Last 3 Months or Most Recently Relevant to Health Maintenance Insurance MEDICARE Advance Directives Documents on File Type Date Recorded Patient Finisher Special Stocks Expl anation Advance Directives and Living Will 05/20/2025 3:23 PM Apryl Arango PROXY * Full Code - Confirmed (Latest Code Status on File) Date Activated Date Inactivated Comments 05/22/2025 7:17 AM 05/25/2025 4:[address] atus was ascertained in the following way: Code status discussion: discussion with patient. To update the patient's code status, place a code status order. Do not modify or discontinue any currently active code status orders. * Full Code - Default Date Activated Date Inactivated Comments 05/20/2025 8:52 AM 05/22/2025 7:17 AM This is orde r is used when code status has not been discussed with the patient, or code status is otherwise unknown/unconfirmed To update the patient's code status, place a code status order. Do not modify or discontinue any currently active code status orders. Healthcare Agents on File Name Relationship [facility] Agent [facility] Jac Arango Brother [facility] Ca re Agent Apryl Alfonso Sister [facility] C are Agent Care Teams Looper Operator Relationship Specialty Start Date End Date Valeria [facility] [place] [address] PCP - General Primary Care 09/12/24
--- OUTSIDE RECORDS SUMMARY | 2025-06-04 15:04 | XMS_ITS | Encounter Summary ---
Author Organization [facility] Address [address] [place] [address] Care Team Providers Care Garden Equipment Mechanic Name Role Phone Valeria Brennan BROCK Primary Care Provider Encounter Details Date Type Department Care Team ([facility] Contact Info) Description 05/26/2025 Lab Requisition [facility] - Main Lab [address] [facility] [place] [address] Ena Arango MD [address] [place] [address] Essential (primary) hypertension; Hypothyroidism, unspecified; Vitamin D deficiency, unspecified Social History Tobacco Use Types Packs/Day Years Used Date Smoking Tobacco: Never Smokeless Tobacco: Never Alcohol Use Standard Drinks/Week Comments Not Currently [...] on file Sexual Orientation Not on file documented as of this encounter Plan of Treatment Upcoming Encounters Date Type Department Care Team (Late st Contact Info) Description 06/16/2025 10:30 AM EDT Hospital Encounter [facility] Main OR [address] [place] [phone] [facility]an MD [facility] [address] [address] 06/16/2025 10:30 AM EDT - 06/16/2025 12:00 PM EDT Surgery [facility] Main OR [address] [place] [phone] Chance Corcoran MD 100 [facility] [address] [address] CYSTOSCOPY URETEROSCOPY LASER LITHOTRIPSY AND STENT [90031 (CPT )] 07/21/2025 3:00 PM EDT Office Visit [facility] - [facility] [address] [facility] [place] [address] Valeria Brennan, BROCK [address] [facility] [place] [address] Scheduled Procedures Name Priority Associated Diagnoses Date/Ti me CYSTOSCOPY URETEROSCOPY Calculus of ureter 06/16/2025 10:30 AM EDT documented as of this encounter Procedures Procedure Name Priority Date/Time Associated Diagnosis Comments VITAMIN B12 AND FOLATE Routine 6:34 AM EDT Essential (primary) hypertension Hypothyroidism, unspecified Vitamin D deficiency, unspecified VITAMIN D 25 HYDROXY Routine 05/26/2025 6:34 AM EDT Essential (primary) hypertension Hypothyroidism, unspecified Vitamin D deficiency, unspecified COMPLETE BLOOD COUNT Routine 05/26/2025 6:34 AM EDT Essential (primary) hypertension Hypothyroidism, unspecified Vitamin D deficiency, unspecified THYROID STIMULATING HORMONE Routine 05/26/2025 6:34 AM EDT Essential (primary) hypertension Hypothyroidism, unspecified Vitamin D deficiency, unspecified COMPREHENSIVE METABOLIC PANEL Routine 05/26/2025 6:34 AM EDT Essential (primary) hypertension Hypothyroidism, unspecified Vitamin D deficiency, unspecified documented in this encounter Results * (ABNORMAL) Thyroid stimulating hormone (05/26/2025 6:34 AM EDT) TSH 4.97(H) 0.40 - 4.00 mcIU/mL LAB CHEMISTRY METHOD 05/26/2025 2:20 PM EDT [facility] Blood Venous blood specimen / Unknown Venipuncture / Unknown 05/26/2025 6:34 AM EDT 05/26/2025 10:33 AM EDT us Ena Arango MD LAB BLOOD ORDERABLES Final Resul t Performing Organization Address City/[facility]/ZIP Co de Phone Number [facility] [address] [place] [address], [place] [phone] * Vitamin D 25 hydroxy (05/26/2025 6:34 AM EDT) [facility] Vit D, 25-Hydroxy 45.6 30.0 - 80.0 ng/mL LAB CHEMISTRY METHOD 05/26/2025 2:20 PM EDT [facility] Blood Venous blood specimen / Unknown Venipuncture / Unknown 05/26/2025 6:34 AM EDT 05/26/2025 10:33 AM EDT us Ena Arango MD LAB BLOOD ORDERABLES Final Resul t [facility] [address] [place] [address], [place] [phone] * (ABNORMAL) Vitamin B12 and folate (05/26/2025 6:34 AM EDT) Pathologist [facility] Vitamin B-12 1,744(H) 250 - 900 pcg/mL LAB CHEMISTRY METHOD 05/26/2025 1:04 PM [facility] Folate 5.4 2.8 - 17.0 ng/ml LAB CHEMISTRY METHOD 05/26/2025 1:04 PM [facility] Blood Venous blood specimen / Unknown Venipuncture / Unknown 05/26/2025 6:34 AM EDT 05/26/2025 10:33 AM EDT us Ena Arango MD LAB BLOOD ORDERABLES Final Resul t [facility] [address] [place] [address], [place] [phone] * (ABNORMAL) Comprehensive metabolic panel (05/26/2025 6:34 AM EDT) Sodium 142 133 - 145 mmol/L LAB CHEMISTRY METHOD 05/26/2025 1:04 PM [facility] Potassium 4.0 3.5 - 5.5 mmol/L LAB CHEMISTRY METHOD 05/26/2025 1:04 PM [facility] Chloride 107 96 - 110 mmol/L LAB CHEMISTRY METHOD 05/26/2025 1:04 PM [facility] CO2 26 21 - 32 mmol/L LAB CHEMISTRY METHOD 05/26/2025 1:04 PM [facility] Anion Gap 9 3 - 11 LAB CHEMISTRY METHOD 05/26/2025 1:04 PM [facility] Glucose 62(L) 70 - 100 mg/dL LAB CHEMISTRY METHOD 05/26/2025 1:04 PM [facility] BUN 27(H) 5 - 25 mg/dL LAB CHEMISTRY METHOD 05/26/2025 1:04 PM [facility] Creatinine 1.73(H) 0.70 - 1.30 mg/dL LAB CHEMISTRY METHOD 05/26/2025 1:04 PM [facility] eGFR 42(L) >=60 mL/min/1. 73m2 LAB CHEMISTRY METHOD 05/26/2025 1:04 PM [facility] Comment:Calculation based on the Chronic Kidney Disease Epidemiology Collaboration (CKD-EPI) equation refit without adjustment for race. BUN/Creatinine Ratio 15.6 LAB CHEMISTRY METHOD 05/26/2025 1:04 PM [facility] Calcium 8.1(L) 8.5 - 10.5 mg/dL LAB CHEMISTRY METHOD 05/26/2025 1:04 PM [facility] AST (SGOT) 22 10 - 42 unit/L LAB CHEMISTRY METHOD 05/26/2025 1:04 PM [facility] ALT (SGPT) 25 10 - 60 unit/L LAB CHEMISTRY METHOD 05/26/2025 1:04 PM [facility] Alkaline Phosphatase 205(H) 42 - 121 unit/L LAB CHEMISTRY METHOD 05/26/2025 1:04 PM [facility] Total Protein 5.2(L) 6.0 - 8.0 g/dL LAB CHEMISTRY METHOD 05/26/2025 1:04 PM [facility] Albumin 2.0(L) 3.2 - 5.0 g/dL LAB CHEMISTRY METHOD 05/26/2025 1:04 PM [facility] Total Bilirubin 0.4 0.0 - 1.4 mg/dL LAB CHEMISTRY METHOD 05/26/2025 1:04 PM [facility] Blood Venous blood specimen / Unknown Venipuncture / Unknown 05/26/2025 6:34 AM EDT 05/26/2025 10:33 AM EDT us Ena Arango MD LAB BLOOD ORDERABLES Final Resul t [facility] [address] [place] [address], * (ABNORMAL) Complete blood count (05/26/2025 6:34 AM EDT) [facility] WBC 12.1(H) 4.8 - 10.8 K/mcL LAB HEMETOLOGY METHOD 05/26/2025 12:23 PM [facility] RBC 3.60(L) 4.50 - 5.50 M/mcL LAB HEMETOLOGY METHOD 05/26/2025 12:23 PM [facility] Hemoglobin 10.7(L) 13.5 - 17.5 g/dL LAB HEMETOLOGY METHOD 05/26/2025 12:23 PM [facility] Hematocrit 33.4(L) 42.0 - 54.0 % LAB HEMETOLOGY METHOD 05/26/2025 12:23 PM [facility] MCV 93.6 79.0 - 98.0 FL LAB HEMETOLOGY METHOD 05/26/2025 12:23 PM [facility] MCH 30.0 27.0 - 32.0 pcg LAB HEMETOLOGY METHOD 05/26/2025 12:23 PM [facility] MCHC 32.0 32.0 - 37.0 g/dL LAB HEMETOLOGY METHOD 05/26/2025 12:23 PM [facility] RDW 14.8 11.0 - 15.0 % LAB HEMETOLOGY METHOD 05/26/2025 12:23 PM [facility] Platelets 318 130 - 400 K/mcL LAB HEMETOLOGY METHOD 05/26/2025 12:23 PM [facility] MPV 10.4 7.0 - 11.0 FL LAB HEMETOLOGY METHOD 05/26/2025 12:23 PM [facility] NRBC 0.0 <1.0 % LAB HEMETOLOGY METHOD 05/26/2025 12:23 PM [facility] NRBC Absolute 0.00 <0.10 K/mcL LAB HEMETOLOGY METHOD 05/26/2025 12:23 PM EDT [facility] Blood Venous blood specimen / Unknown Venipuncture / Unknown 05/26/2025 6:34 AM EDT 05/26/2025 10:33 AM EDT us Ena Arango MD LAB BLOOD ORDERABLES Final Resul t [facility] [address] [place] [address], documented in this encounter Visit Diagnoses Diagnosis Essential (primary) hypertension Unspecified essential hypertension Hypothyroidism, unspecified Vitamin D deficiency, unspecified Calculus of ureter documented in this encounter Care Teams Garden Equipment Mechanic Relationship Specialty Start Date End Date Valeria Brennan NP [address] [place] [address] PCP - General Primary Care 09/12/24 documented as of this encounter
--- OUTSIDE RECORDS SUMMARY | 2025-06-04 15:04 | XMS_ITS | Encounter Summary ---
Author Organization [facility] Address [address] [place] [address] Care Team Providers Care Proof Coin Collector Name Role Phone Valeria Brennan BROCK Primary Care Provider Encounter Details Date Type Department Care Team (Late Contact Info) Description 05/28/2025 Lab Requisition [facility] - Main Lab [address] [facility] [place] [address] Ena Arango MD [address] [place] [address] Essential (primary) hypertension Social History Tobacco Use Types Packs/Day Years [...] Upcoming Encounters Date Type Department Care Team ([facility] Contact Info) Description 06/16/2025 10:30 AM EDT Hospital Encounter [facility] Main OR [address] [place] [phone] Chance [facility]coran MD 100 [facility] [address] [address] 06/16/2025 10:30 AM EDT - 06/16/2025 12:00 PM EDT Surgery [facility] Main OR [address] [place] [phone] Chance Corcoran MD [address] Brandan Chaves [address] [address] CYSTOSCOPY URETEROSCOPY LASER LITHOTRIPSY AND STENT [[address] (CPT )] 07/21/2025 3:00 PM EDT [facility] [address] [facility] [place] [address] Valeria Brennan, BROCK [address] [place] [address] Scheduled Procedures Name Priority Associated Diagnoses Date/Ti me CYSTOSCOPY URETEROSCOPY Calculus of ureter 06/16/2025 10:30 AM EDT documented as of this encounter Procedures Procedure Name Priority Date/Time Associated Diagnosis Comments COMPLETE BLOOD COUNT Routine 05/29/2025 7:04 AM EDT Essential (primary) hypertension BASIC METABOLIC PANEL Routine 05/29/2025 7:04 AM EDT Essential (primary) hypertension documented in this encounter Results * (ABNORMAL) Basic metabolic panel (05/29/2025 7:04 AM EDT) Sodium 143 133 - 145 mmol/L LAB CHEMISTRY METHOD 05/29/2025 10:45 AM EDT [facility] Potassium 4.1 3.5 - 5.5 mmol/L LAB CHEMISTRY METHOD 05/29/2025 10:45 AM EDT [facility] Chloride 108 96 - 110 mmol/L LAB CHEMISTRY METHOD 05/29/2025 10:45 AM [facility] CO2 30 21 - 32 mmol/L LAB CHEMISTRY METHOD 05/29/2025 10:45 AM [facility] Anion Gap 5 3 - 11 LAB CHEMISTRY METHOD 05/29/2025 10:45 AM [facility] Glucose 72 70 - 100 mg/dL LAB CHEMISTRY METHOD 05/29/2025 10:45 AM [facility] BUN 17 5 - 25 mg/dL LAB CHEMISTRY METHOD 05/29/2025 10:45 AM [facility] Creatinine 1.15 0.70 - 1.30 mg/dL LAB CHEMISTRY METHOD 05/29/2025 10:45 AM [facility] eGFR 69 >=60 mL/min/1. 73m2 LAB CHEMISTRY METHOD 05/29/2025 10:45 AM [facility] Comment:Calculation based on the Chronic Kidney Disease Epidemiology Collaboration (CKD-EPI) equation refit without adjustment for race. BUN/Creatinine Ratio 14.8 LAB CHEMISTRY METHOD 05/29/2025 10:45 AM [facility] Calcium 7.8(L) 8.5 - 10.5 mg/dL LAB CHEMISTRY METHOD 05/29/2025 10:45 AM [facility] Blood Venous blood specimen / Unknown Venipuncture / Unknown 05/29/2025 7:04 AM EDT 05/29/2025 9:41 AM EDT us Ena Arango MD LAB BLOOD ORDERABLES Final Resul t [facility] [address] [place] [address], * (ABNORMAL) Complete blood count (05/29/2025 7:04 AM EDT) WBC 9.0 4.8 - 10.8 K/mcL LAB HEMETOLOGY METHOD 05/29/2025 10:01 AM [facility] RBC 3.30(L) 4.50 - 5.50 M/mcL LAB HEMETOLOGY METHOD 05/29/2025 10:01 AM [facility] Hemoglobin 9.9(L) 13.5 - 17.5 g/dL LAB HEMETOLOGY METHOD 05/29/2025 10:01 AM [facility] Hematocrit 32.0(L) 42.0 - 54.0 % LAB HEMETOLOGY METHOD 05/29/2025 10:01 AM [facility] MCV 95.8 79.0 - 98.0 FL LAB HEMETOLOGY METHOD 05/29/2025 10:01 AM [facility] MCH 29.6 27.0 - 32.0 pcg LAB HEMETOLOGY METHOD 05/29/2025 10:01 AM [facility] MCHC 30.9(L) 32.0 - 37.0 g/dL LAB HEMETOLOGY METHOD 05/29/2025 10:01 AM [facility] RDW 14.6 11.0 - 15.0 % LAB HEMETOLOGY METHOD 05/29/2025 10:01 AM [facility] Platelets 390 130 - 400 K/mcL LAB HEMETOLOGY METHOD 05/29/2025 10:01 AM [facility] MPV 9.6 7.0 - 11.0 FL LAB HEMETOLOGY METHOD 05/29/2025 10:01 AM [facility] NRBC 0.0 <1.0 % LAB HEMETOLOGY METHOD 05/29/2025 10:01 AM [facility] NRBC Absolute 0.00 <0.10 K/mcL LAB HEMETOLOGY METHOD 05/29/2025 10:01 AM [facility] Blood Venous blood specimen / Unknown Venipuncture / Unknown 05/29/2025 7:04 AM EDT 05/29/2025 9:41 AM EDT Ena Arango MD LAB BLOOD ORDERABLES Final Resul t [facility] [address] [place] [address], documented in this encounter Visit Diagnoses Diagnosis Essential (primary) hypertension Unspecified essential hypertension Calculus of ureter documented in this encounter Care Teams Proof Coin Collector Relationship Specialty Start Date End Date Valeria Brennan NP [address] [place] [address] PCP - General Primary Care 09/12/24 documented as of this encounter
--- OUTSIDE RECORDS SUMMARY | 2025-06-04 15:04 | XMS_ITS | Clinical Summary ---
Author Organization [facility] Address [address] [id number] Care Team Providers Care Alliance Director Name Role Phone Manan Whitten MD Primary Care Provider Unavailable Allergies No known active allergies Medications Medication Sig Dispensed Refills Start Date End Date Status polyethylene glycol (MIRALAX) 17 g packet Take 17 g by mouth daily. 14 each 0 11/21/2023 Active Additional Information Patient not taking.Reason: Other, Reported on 12/26/2023 senna-docusate (PERICOLACE) 8.6-50 MG Take 2 tablets by mouth 2 (two) times a day. 60 tablet 0 11/24/2023 Active Additional Information Patient not taking.Reason: Other, Reported on 01/30/2024 tamsulosin (FLOMAX) 0.4 MG CAPS Take 2 capsules (0.8 mg total) by mouth daily. 180 capsule 3 12/07/2023 Active methylPREDNISolone (MEDROL DOSEPACK) 4 MG tablet follow package directions 21 tablet 0 12/26/2023 Active Additional Information Patient not taking.Reason: Other, Reported on 01/30/2024 butalbital-acetami nophen-caffeine 50-325-40 MG per tablet Take 1 tablet by mouth every 4 (four) hours as needed for pain. 30 tablet 0 12/27/2023 Active gabapentin (NEURONTIN) 300 MG capsule TAKE 2 CAPSULES(600 MG) BY MOUTH THREE TIMES DAILY. 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 Back pain at L4-L5 level 11/10/2023 Social History Tobacco Use Types Packs/Day Years Used Date Smoking Tobacco: Never Assessed Sex and Gender Information Value Date Recorded Sex Assigned at Male 11/13/2023 12:51 PM EST Gender Identity Not on file Sexual Orientation Not on file Job Start Date Occupation Industry Not on file Not on file Not on file Last Filed Vital Signs Vital Sign Reading Time Taken Comments Blood Pressure 149/88 06/04/2024 2:02 PM EDT Pulse 83 06/04/2024 2:02 PM EDT Temperature 36.7 C (98 F) 06/04/2024 2:02 PM EDT Respiratory Rate 15 11/24/2023 8:40 AM EST Oxygen Saturation 96% 01/30/2024 12: 13 PM EDT Inhaled Oxygen Concentration - - Weight 72.5 kg (159 lb 14.4 oz) 06/04/2024 2:02 PM EDT Height 180.3 cm (5' 11 ) 06/04/2024 2:02 PM EDT Body Mass Index 22.3 06/04/2024 2:02 PM EDT Plan of Treatment Health Maintenance Due Date Last Done Comments Hepatitis C Screening 1955 COVID-19 Vaccine (#1) 01/22/1957 Depression Screening 1968 Preventative Health Evaluation 1974 DTap / Tdap / Td (1 - Tdap) 1975 Colon Cancer Screening (Colonoscopy) 2001 Shingrix-Zoster Vaccine (1 of 2) 2006 Fall Risk Assessment 2021 Pneumococcal Vaccine (1 of 1 - PCV) 2021 Influenza Vaccine (#1) 2025 RSV Adult > 60+ Yrs or Pregn ant (1 - 1-dose 75+ series) 2031 Hepatitis B Vaccines Aged Out No long er eligible based on patient's age to complete this topic RSV Ped < 20 months Aged Out No longe r eligible based on patient's age to complete this topic Medical Devices Implanted Type Area Appliance Mechanic Device Identifier Shelf Expiration Date Model / Serial / Lot Surgiflo Hemostatic Matrix DataRPMZafgen [id number] - [id number] Implanted:Qt y: 1 on 11/15/2023 by Venkatesh Allan MD at [facility] Hemostatic Agent N/A: Spine Lumbar [employer] 06/01/2025 [id number] / / [id number] Sealant Fibrin Vistaseal 4ml DataRPMZafgen [id number] - [id number] Implanted:Qt y: 2 on 11/15/2023 by Venkatesh Allan MD at [facility] Hemostatic Agent Posterio r: Spine Lumbar JNJ [employer] 12/15/2023 [id number] / / [id number] ++Dnu+Disc Use [id number] Hemostat Absorb 2x14in Surgicel Jn-Ethi [id number] - [id number] Implanted:Qt y: 1 on 11/15/2023 by Venkatesh Allan MD at [facility] Hemostatic Agent Posterio r: Spine Lumbar [employer] 12/30/20251 / / [id number] Duramatrix Onlay Plus 3x3 Stry-Cran [id number] - [id number] Implanted:Qt y: 1 on 11/15/2023 by Venkatesh Allan MD at [facility] Posterio r: Spine Lumbar NAVYA CRANIOMAXILLOFACIAL 06/01/2026 [id number] / / [id number] Advance Directives For more information, please contact: [phone] Latest Code Status on File Code Status Date Activated Date Inactivated Comments Full Code 11/20/2023 2:21 PM Code Status History Code Status Date Activated Date Inactivated Comments Full Code 11/10/2023 7:14 PM 11/20/2023 2:21 PM This c ode status was ascertained in the following way: discussion with patient . Care Teams Alliance Director Relationship Specialty Start Date End Date Manan Whitten MD PCP - General Family Medicine 11/02/23
--- OUTSIDE RECORDS SUMMARY | 2025-06-04 15:04 | XMS_ITS | Encounter Summary ---
Author Organization [facility] Address [address] [place] [address] Care Team Providers Care Faculty Neuropsychologist Name Role Phone Valeria Brennan BROCK Primary Care Provider [phone] Encounter Details Date Type Department Care Team (Late Contact Info) Description 06/04/2025 Lab Requisition [facility] - Main Lab [address] [facility] [facility] [place] [address] Ena Arango MD [address] [place] [address] Essential (primary) hypertension Social History Tobacco Use [...] Encounters Date Type Department Care Team (Late Contact Info) Description 06/16/2025 10:30 AM EDT Hospital Encounter [facility] Main OR [address] [place] [address] Chance Corcoran MD [address] [address] 06/16/2025 10:30 AM EDT - 06/16/2025 12:00 PM EDT Surgery [facility] Main OR [address] [place] [address] Chance Corcoran MD [address] [address] CYSTOSCOPY URETEROSCOPY LASER LITHOTRIPSY AND STENT [76416 (CPT )] 07/21/2025 3:00 PM EDT [facility] [address] [place] [address] Valeria Brennan NP [address] [place] [address] Scheduled Orders Name Type Priority Associated Diagnoses Orde r Schedule Complete blood count Lab Routine Essential (primary) hypertension Ordered: 06/04/2025 Basic metabolic panel Lab Routine Essential (primary) hypertension Ordered: 06/04/2025 Scheduled Procedures Name Priority Associated Diagnoses Date/Ti ma CYSTOSCOPY URETEROSCOPY Calculus of ureter 06/16/2025 10:30 AM EDT documented as of this encounter Visit Diagnoses Diagnosis Essential (primary) hypertension Unspecified essential hypertension Calculus of ureter documented in this encounter Care Teams Faculty Neuropsychologist Relationship Specialty Start Date End Date Valeria Brennan NP [address] [place] [address] PCP - General Primary Care 09/12/24 documented as of this encounter
--- OUTSIDE RECORDS SUMMARY | 2025-06-04 15:04 | XMS_ITS ---
Author Name [facility] Organization Unknown Results Test Name/Text Value Interpretation Date Range Source ANION GAP SERPL SCNC 6.0 mmol/L Normal 11/23/2023 5 - 14 [facility] Glomerular filtration rate/1.73 sq M. predicted 101.0 Normal 11/23/2023 60 - [facility] CREAT SERPL MCNC 0.7 mg/dL Normal 11/23/2023 0.7 - 1.3 [facility] GLUCOSE SERPL MCNC 99.0 mg/dL Normal 11/23/2023 70 - 199 [facility] SODIUM SERPL SCNC 138.0 mmol/L Normal 11/23/2023 135 - 145 [facility] BUN SERPL MCNC 24.0 mg/dL Above high normal 11/23/2023 9 - 2 0 [facility] POTASSIUM SERPL SCNC 4.1 mmol/L Normal 11/23/2023 3.5 - 5.1 [facility] CHLORIDE SERPL SCNC 101.0 mmol/L Normal 11/23/2023 98 - 107 [facility] CALCIUM SERPL MCNC 8.0 mg/dL Below low normal 11/23/2023 8.4 - 10.2 [facility] HCO3 SER SCNC 31.0 mmol/L Normal 11/23/2023 24 - 32 [facility] HCT VFR BLD AUTO 42.3 % Normal 11/23/2023 40 - 54 [facility] MCHC RBC AUTO MCNC 34.2 g/dL Normal 11/23/2023 32 - 36 [facility] RDW RBC AUTO RTO 14.5 % Normal 11/23/2023 12.1 - 17.7 [facility] MCH RBC QN AUTO 31.8 pg Normal 11/23/2023 25 - 33 [facility] PLATELET NO. BLD AUTO 226.0 K/uL Normal 11/23/2023 150 - 450 [facility] WBC NO. BLD AUTO 14.8 K/uL Above high normal 11/23/2023 4 - 10.5 [facility] HGB BLD MCNC 14.5 g/dL Normal 11/23/2023 13.5 - 18 [facility] MCV RBC AUTO 92.8 fL Normal 11/23/2023 78 - 100 [facility] PMV BLD AUTO 8.2 fL Normal 11/23/2023 7.4 - 11.4 [facility] RBC NO. BLD AUTO 4.56 M/uL Below low normal 11/23/2023 4.7 - 6 [facility] CALCIUM SERPL MCNC 7.7 mg/dL Below low normal 11/22/2023 8.4 - 10.2 [facility] Glomerular filtration rate/1.73 sq M. predicted 112.0 Normal 11/22/2023 60 - [facility] BUN SERPL MCNC 23.0 mg/dL Above high normal 11/22/2023 9 - 2 0 [facility] SODIUM SERPL SCNC 134.0 mmol/L Below low normal 11/22/2023 135 - 145 [facility] GLUCOSE SERPL MCNC 126.0 mg/dL Normal 11/22/2023 70 - 199 [facility] ANION GAP SERPL SCNC 6.0 mmol/L Normal 11/22/2023 5 - 14 [facility] CREAT SERPL MCNC 0.5 mg/dL Below low normal 11/22/2023 0.7 - 1.3 [facility] POTASSIUM SERPL SCNC 4.1 mmol/L Normal 11/22/2023 3.5 - 5.1 [facility] HCO3 SER SCNC 27.0 mmol/L Normal 11/22/2023 24 - 32 [facility] CHLORIDE SERPL SCNC 101.0 mmol/L Normal 11/22/2023 98 - 107 [facility] MCV RBC AUTO 93.7 fL Normal 11/22/2023 78 - 100 [facility] MCHC RBC AUTO MCNC 33.7 g/dL Normal 11/22/2023 32 - 36 [facility] RBC NO. BLD AUTO 4.55 M/uL Below low normal 11/22/2023 4.7 - 6 [facility] HGB BLD MCNC 14.4 g/dL Normal 11/22/2023 13.5 - 18 [facility] PLATELET NO. BLD AUTO 246.0 K/uL Normal 11/22/2023 150 - 450 [facility] WBC NO. BLD AUTO 11.3 K/uL Above high normal 11/22/2023 4 - 10.5 [facility] PMV BLD AUTO 7.8 fL Normal 11/22/2023 7.4 - 11.4 [facility] MCH RBC QN AUTO 31.6 pg Normal 11/22/2023 25 - 33 [facility] HCT VFR BLD AUTO 42.6 % Normal 11/22/2023 40 - 54 [facility] RDW RBC AUTO RTO 14.0 % Normal 11/22/2023 12.1 - 17.7 [facility] ALBUMIN SERPL BCG MCNC 3.1 g/dL Below low normal 11/22/2023 3.5 - 5 [facility] Service [facility] XXX-Imp Hernandez Alinity M Normal 11/20/2023 [facility] SPECIMEN SOURCE XXX NASOPHARYNGEAL Normal 11/20/2023 [facility] OSMOLALITY UR 244.0 mOsm/kg Normal 11/20/2023 50 - 1200 C [facility] MCV RBC AUTO 92.8 fL Normal 11/19/2023 78 - 100 [facility] MCH RBC QN AUTO 31.2 pg Normal 11/19/2023 25 - 33 [facility] PLATELET NO. BLD AUTO 263.0 K/uL Normal 11/19/2023 150 - 450 [facility] HGB BLD MCNC 16.3 g/dL Normal 11/19/2023 13.5 - 18 [facility] MCHC RBC AUTO MCNC 33.6 g/dL Normal 11/19/2023 32 - 36 [facility] PMV BLD AUTO 9.6 fL Normal 11/19/2023 7.4 - 11.4 [facility] HCT VFR BLD AUTO 48.6 % Normal 11/19/2023 40 - 54 [facility] RBC NO. BLD AUTO 5.23 M/uL Normal 11/19/2023 4.7 - 6 [facility] WBC NO. BLD AUTO 10.8 K/uL Above high normal 11/19/2023 4 - 10.5 [facility] RDW RBC AUTO RTO 13.9 % Normal 11/19/2023 12.1 - 17.7 [facility] POTASSIUM SERPL SCNC 4.1 mmol/L Normal 11/19/2023 3.5 - 5.1 [facility] GLUCOSE SERPL MCNC 114.0 mg/dL Normal 11/19/2023 70 - 199 [facility] CREAT SERPL MCNC 0.6 mg/dL Below low normal 11/19/2023 0.7 - 1.3 [facility] Glomerular filtration rate/1.73 sq M. predicted 106.0 Normal 11/19/2023 60 - [facility] ANION GAP SERPL SCNC 8.0 mmol/L Normal 11/19/2023 5 - 14 [facility] CHLORIDE SERPL SCNC 99.0 mmol/L Normal 11/19/2023 98 - 107 [facility] SODIUM SERPL SCNC 136.0 mmol/L Normal 11/19/2023 135 - 145 [facility] CALCIUM SERPL MCNC 8.3 mg/dL Below low normal 11/19/2023 8.4 - 10.2 [facility] BUN SERPL MCNC 24.0 mg/dL Above high normal 11/19/2023 9 - 2 0 [facility] HCO3 SER SCNC 29.0 mmol/L Normal 11/19/2023 24 - 32 [facility] ANION GAP SERPL SCNC 8.0 mmol/L Normal 11/18/2023 5 - 14 [facility] HCO3 SER SCNC 28.0 mmol/L Normal 11/18/2023 24 - 32 [facility] POTASSIUM SERPL SCNC 4.0 mmol/L Normal 11/18/2023 3.5 - 5.1 [facility] SODIUM SERPL SCNC 136.0 mmol/L Normal 11/18/2023 135 - 145 [facility] CREAT SERPL MCNC 0.6 mg/dL Below low normal 11/18/2023 0.7 - 1.3 [facility] CALCIUM SERPL MCNC 8.3 mg/dL Below low normal 11/18/2023 8.4 - 10.2 [facility] Glomerular filtration rate/1.73 sq M. predicted 106.0 Normal 11/18/2023 60 - [facility] BUN SERPL MCNC 24.0 mg/dL Above high normal 11/18/2023 9 - 2 0 [facility] CHLORIDE SERPL SCNC 100.0 mmol/L Normal 11/18/2023 98 - 107 [facility] GLUCOSE SERPL MCNC 113.0 mg/dL Normal 11/18/2023 70 - 199 [facility] MCH RBC QN AUTO 31.2 pg Normal 11/18/2023 25 - 33 [facility] HGB BLD MCNC 15.4 g/dL Normal 11/18/2023 13.5 - 18 [facility] PLATELET NO. BLD AUTO 259.0 K/uL Normal 11/18/2023 150 - 450 [facility] MCHC RBC AUTO MCNC 33.7 g/dL Normal 11/18/2023 32 - 36 [facility] HCT VFR BLD AUTO 45.7 % Normal 11/18/2023 40 - 54 [facility] RBC NO. BLD AUTO 4.94 M/uL Normal 11/18/2023 4.7 - 6 [facility] WBC NO. BLD AUTO 12.9 K/uL Above high normal 11/18/2023 4 - 10.5 [facility] PMV BLD AUTO 9.3 fL Normal 11/18/2023 7.4 - 11.4 [facility] RDW RBC AUTO RTO 13.9 % Normal 11/18/2023 12.1 - 17.7 [facility] MCV RBC AUTO 92.6 fL Normal 11/18/2023 78 - 100 [facility] SODIUM SERPL SCNC 139.0 mmol/L Normal 11/17/2023 135 - 145 [facility] ANION GAP SERPL SCNC 6.0 mmol/L Normal 11/17/2023 5 - 14 [facility] CHLORIDE SERPL SCNC 103.0 mmol/L Normal 11/17/2023 98 - 107 [facility] GLUCOSE SERPL MCNC 110.0 mg/dL Normal 11/17/2023 70 - 199 [facility] BUN SERPL MCNC 23.0 mg/dL Above high normal 11/17/2023 9 - 2 0 [facility] CALCIUM SERPL MCNC 8.1 mg/dL Below low normal 11/17/2023 8.4 - 10.2 [facility] HCO3 SER SCNC 30.0 mmol/L Normal 11/17/2023 24 - 32 [facility] CREAT SERPL MCNC 0.8 mg/dL Normal 11/17/2023 0.7 - 1.3 [facility] POTASSIUM SERPL SCNC 4.3 mmol/L Normal 11/17/2023 3.5 - 5.1 [facility] Glomerular filtration rate/1.73 sq M. predicted 97.0 Normal 11/17/2023 60 - [facility] PMV BLD AUTO 8.9 fL Normal 11/17/2023 7.4 - 11.4 [facility] MCV RBC AUTO 92.7 fL Normal 11/17/2023 78 - 100 [facility] MCH RBC QN AUTO 31.5 pg Normal 11/17/2023 25 - 33 [facility] PLATELET NO. BLD AUTO 237.0 K/uL Normal 11/17/2023 150 - 450 [facility] MCHC RBC AUTO MCNC 34.0 g/dL Normal 11/17/2023 32 - 36 [facility] RDW RBC AUTO RTO 14.0 % Normal 11/17/2023 12.1 - 17.7 [facility] WBC NO. BLD AUTO 15.5 K/uL Above high normal 11/17/2023 4 - 10.5 [facility] RBC NO. BLD AUTO 4.81 M/uL Normal 11/17/2023 4.7 - 6 [facility] HCT VFR BLD AUTO 44.6 % Normal 11/17/2023 40 - 54 [facility] HGB BLD MCNC 15.1 g/dL Normal 11/17/2023 13.5 - 18 [facility] GLUCOSE SERPL MCNC 101.0 mg/dL Normal 11/16/2023 70 - 199 [facility] Glomerular filtration rate/1.73 sq M. predicted 101.0 Normal 11/16/2023 60 - [facility] BUN SERPL MCNC 22.0 mg/dL Above high normal 11/16/2023 9 - 2 0 [facility] POTASSIUM SERPL SCNC 4.3 mmol/L Normal 11/16/2023 3.5 - 5.1 [facility] HCO3 SER SCNC 29.0 mmol/L Normal 11/16/2023 24 - 32 [facility] ANION GAP SERPL SCNC 8.0 mmol/L Normal 11/16/2023 5 - 14 [facility] CHLORIDE SERPL SCNC 103.0 mmol/L Normal 11/16/2023 98 - 107 [facility] CALCIUM SERPL MCNC 8.4 mg/dL Normal 11/16/2023 8.4 - 10.2 [facility] CREAT SERPL MCNC 0.7 mg/dL Normal 11/16/2023 0.7 - 1.3 [facility] SODIUM SERPL SCNC 140.0 mmol/L Normal 11/16/2023 135 - 145 [facility] PMV BLD AUTO 9.1 fL Normal 11/16/2023 7.4 - 11.4 [facility] HCT VFR BLD AUTO 45.2 % Normal 11/16/2023 40 - 54 [facility] RBC NO. BLD AUTO 4.9 M/uL Normal 11/16/2023 4.7 - 6 [facility] MCV RBC AUTO 92.3 fL Normal 11/16/2023 78 - 100 [facility] RDW RBC AUTO RTO 13.8 % Normal 11/16/2023 12.1 - 17.7 [facility] MCH RBC QN AUTO 31.1 pg Normal 11/16/2023 25 - 33 [facility] HGB BLD MCNC 15.2 g/dL Normal 11/16/2023 13.5 - 18 [facility] MCHC RBC AUTO MCNC 33.7 g/dL Normal 11/16/2023 32 - 36 [facility] PLATELET NO. BLD AUTO 267.0 K/uL Normal 11/16/2023 150 - 450 [facility] WBC NO. BLD AUTO 14.2 K/uL Above high normal 11/16/2023 4 - 10.5 [facility] MAGNESIUM SERPL MCNC 2.2 mg/dL Normal 11/16/2023 1.7 - 2.8 [facility] ABO+RH GP BLD A POSITIVE Normal 11/15/[address] [facility] BLOOD BANK CMNT PATIENT-IMP Testing performed at [facility], [address] [place] [id number], Lindsay Mccoy MD Cdl Dedicated Truck Driver, [facility] [id number] Normal 11/15/2023 [facility] BLD GP AB SCN SERPL QL NEGATIVE Normal 11/15/2023 [facility] HCT VFR BLD AUTO 42.5 % Normal 11/12/2023 40 - 54 [facility] MCV RBC AUTO 92.2 fL Normal 11/12/2023 78 - 100 [facility] RBC NO. BLD AUTO 4.61 M/uL Below low normal 11/12/2023 4.7 - 6 [facility] MCH RBC QN AUTO 31.7 pg Normal 11/12/2023 25 - 33 [facility] WBC NO. BLD AUTO 9.5 K/uL Normal 11/12/2023 4 - 10.5 [facility] MCHC RBC AUTO MCNC 34.4 g/dL Normal 11/12/2023 32 - 36 [facility] HGB BLD MCNC 14.6 g/dL Normal 11/12/2023 13.5 - 18 [facility] PLATELET NO. BLD AUTO 251.0 K/uL Normal 11/12/2023 150 - 450 [facility] RDW RBC AUTO RTO 13.7 % Normal 11/12/2023 12.1 - 17.7 [facility] PMV BLD AUTO 9.1 fL Normal 11/12/2023 7.4 - 11.4 [facility] Bacteria Ur Ql Auto PRESENT Abnormal 11/11/2023 - [facility] WBC number/area UrnS Auto 42.0 /HPF Above high normal 11/11/2023 0 - 5 [facility] Squamous number/area UrnS Auto 3.0 /LFP Normal 11/11/2023 0 - 5 [facility] RBC number/area UrnS Auto 50.0 /HPF Above high normal 11/11/2023 0 - 3 [facility] pH Ur Strip.auto 5.0 Normal 11/11/2023 4.5 - 8 [facility] Clarity Ur Refract.auto SLIGHTLY CLOUDY Normal 11/11/2023 [facility] Nitrite Ur Ql Strip.auto NEGATIVE Normal 11/11/2023 - [facility] Hgb Ur Ql Strip.auto MODERATE Abnormal 11/11/2023 - [facility] Leukocyte esterase Ur Ql Strip.auto MODERATE Abnormal 11/11/2023 - [facility] Glucose Ur Ql Strip.auto NEGATIVE Normal 11/11/2023 - [facility] Color Ur Auto YELLOW Normal 11/11/2023 [facility] Prot Ur Ql Strip.auto 30.0 mg/dL Abnormal 11/11/2023 - [facility] Ketones Ur Ql Strip.auto TRACE Abnormal 11/11/2023 - [facility] Sp Gr Ur Strip.auto 1.025 Normal 11/11/2023 1.005 - 1.03 [facility] SPECIMEN SOURCE XXX URINE CLEAN CATCH Normal 11/11/2023 [facility] BLOOD BANK CMNT PATIENT-IMP Testing performed at [facility], [address] [place] [address], Lindsay Mccoy MD Cdl Dedicated Truck Driver, [facility] [id number] Normal 11/11/2023 [facility] ABO+RH GP BLD A POSITIVE Normal 11/11/2023 [facility] APTT TIME PPP 30.0 sec Normal 11/11/2023 25 - 37 [facility] INR PPP 1.0 Normal 11/11/2023 0.8 - 1.1 [facility] PT TIME PPP 12.3 sec Normal 11/11/2023 10.5 - 13.3 [facility] PLATELET NO. BLD AUTO 230.0 K/uL Normal 11/11/2023 150 - 450 [facility] MCH RBC QN AUTO 32.1 pg Normal 11/11/2023 25 - 33 [facility] PMV BLD AUTO 8.9 fL Normal 11/11/2023 7.4 - 11.4 [facility] HGB BLD MCNC 14.9 g/dL Normal 11/11/2023 13.5 - 18 [facility] RBC NO. BLD AUTO 4.64 M/uL Below low normal 11/11/2023 4.7 - 6 [facility] WBC NO. BLD AUTO 6.4 K/uL Normal 11/11/2023 4 - 10.5 [facility] RDW RBC AUTO RTO 14.1 % Normal 11/11/2023 12.1 - 17.7 [facility] HCT VFR BLD AUTO 43.1 % Normal 11/11/2023 40 - 54 [facility] MCHC RBC AUTO MCNC 34.5 g/dL Normal 11/11/2023 32 - 36 [facility] MCV RBC AUTO 93.0 fL Normal 11/11/2023 78 - [facility] PATIENT-IMP Testing performed at [facility], [address] [place] [address], Lindsay Mccoy MD Cdl Dedicated Truck Driver, [employer] [id number] Normal 11/11/2023 [facility] BLD GP AB SCN SERPL QL NEGATIVE Normal 11/11/2023 [facility] ABO+RH GP BLD A POSITIVE Normal 11/11/2023 [facility] MAGNESIUM SERPL MCNC 2.0 mg/dL Normal 11/11/2023 1.7 - 2.8 [facility] ALT SERPL CCNC 36.0 U/L Normal 11/11/2023 7 - 52 [facility] BILIRUB SERPL MCNC 0.7 mg/dL Normal 11/11/2023 0.3 - 1 [facility] CHLORIDE SERPL SCNC 106.0 mmol/L Normal 11/11/2023 98 - 107 [facility] AST SERPL CCNC 29.0 U/L Normal 11/11/2023 5 - 40 [facility] ALBUMIN SERPL BCG MCNC 3.9 g/dL Normal 11/11/2023 3.5 - 5 [facility] CREAT SERPL MCNC 0.7 mg/dL Normal 11/11/2023 0.7 - 1.3 [facility] ANION GAP SERPL SCNC 9.0 mmol/L Normal 11/11/2023 5 - 14 [facility] ALP SERPL-CCNC 111.0 U/L Above high normal 11/11/2023 34 - 1 04 [facility] BUN SERPL MCNC 23.0 mg/dL Above high normal 11/11/2023 9 - 2 0 [facility] Glomerular filtration rate/1.73 sq M. predicted 101.0 Normal 11/11/2023 60 - [facility] POTASSIUM SERPL SCNC 3.7 mmol/L Normal 11/11/2023 3.5 - 5.1 [facility] PROT SERPL MCNC 6.5 g/dL Normal 11/11/2023 6.4 - 8.5 [facility] SODIUM SERPL SCNC 142.0 mmol/L Normal 11/11/2023 135 - 145 [facility] CALCIUM SERPL MCNC 8.9 mg/dL Normal 11/11/2023 8.4 - 10.2 [facility] HCO3 SER SCNC 27.0 mmol/L Normal 11/11/2023 24 - 32 [facility] GLUCOSE SERPL MCNC 103.0 mg/dL Normal 11/11/2023 70 - 199 [facility] History of Medication Use Medication Directions Dispensed Refills Start Date End Date Stat pregabalin (LYRICA) 50 mg capsule Take 1 capsule (50 mg total) by mouth 3 (three) times a day. 04/09/2025 active butalbital-acetaminophen -caffeine 50-325-40 MG per tablet Take 1 tablet by mouth every 4 (four) hours as needed for pain. 12/27/2023 active methylPREDNISolone (MEDROL DOSEPACK) 4 MG tablet follow package directions 12/26/2023 active tamsulosin (FLOMAX) 0.4 MG CAPS Take 2 capsules (0.8 mg total) by mouth daily. 12/07/2023 active tamsulosin (FLOMAX) 0.4 MG CAPS Take 2 capsules (0.8 mg total) by mouth daily. 12/07/2023 active butalbital-acetaminophen -caffeine 50-325-40 MG per tablet Take 1 tablet by mouth every 6 (six) hours as needed for headaches for up to 30 days. 11/24/2023 active senna-docusate (PERICOLACE) 8.6-50 MG Take 2 tablets by mouth 2 (two) times a day. 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 C [facility] Urinary retention active 2023-12-11 ProblemAct [facility] Fecal incontinence active 2023-12-11 ProblemAct [facility] Pain and swelling of right lower leg active EncounterDiagnosisAct [facility] Pain and swelling of left lower leg active EncounterDiagnosisAct [facility] Synovial chondromatosis active EncounterDiagnosisAct [facility] Back pain at L4-L5 level active 2023-11-10 ProblemAct CTTHNEMG Encounters Encounter Type Encounter Reason Primary Diagnosis Location Date Ambulatory Low back pain, unspecified Low back pain, unspecified [facility] 01/29/2024 Ambulatory Neoplasm of unspecified behavior of bone, soft tissue, and skin Neoplasm of unspecified behavior of bone, soft tissue, and skin [facility] [place] Neoplasm of unspecified behavior of bone, soft tissue, and skin Neoplasm of unspecified behavior of bone, soft tissue, and skin [facility] [place]10/2023 Care Team Organization Name Specialty Phone Email Start Date End Da te [facility] Primary [facility] 05/0 01/2024 [facility] 01/30/2024 [facility] 01/29/2024 04/15/2025 [facility] [place] [facility] 12/11/2023 [facility] [place]/2025 [facility] [place]
--- OUTSIDE RECORDS SUMMARY | 2025-06-04 15:04 | XMS_ITS | Encounter Summary ---
Author Organization [facility] Address [address] [place] [address] Care Team Providers Care Optometric Technologist Name Role Phone Valeria Brennan BROCK Primary Care Provider Encounter Details Date Type Department Care Team (Late Contact Info) Description 05/30/2025 Lab Requisition [facility] - Main Lab [address] [facility] [place] [address] Ena Arango MD [address] [place] [address] Essential (primary) hypertension Social History Tobacco Use [...] Upcoming Encounters Date Type Department Care Team ([facility] Contact [facility]) Description 06/16/2025 10:30 AM EDT Hospital Encounter [facility] Main OR [address] [place] [phone] [facility] [address] [address] 06/16/2025 10:30 AM EDT - 06/16/2025 12:00 PM EDT Surgery [facility] Main OR [address] [place] [phone] Chance Corcoran MD [address] Chaves [address] [address] CYSTOSCOPY URETEROSCOPY LASER LITHOTRIPSY AND STENT [27851 (CPT )] 07/21/2025 3:00 PM EDT Office Visit [facility] [address] [place] [address] Valeria Brennan, BROCK [address] [place] [address] Scheduled Procedures Name Priority Associated Diagnoses Date/Ti me CYSTOSCOPY URETEROSCOPY Calculus of ureter 06/16/2025 10:30 AM EDT documented as of this encounter Procedures Procedure Name Priority Date/Time Associated Diagnosis Comments COMPLETE BLOOD COUNT Routine 06/03/2025 5:10 AM EDT Essential (primary) hypertension BASIC METABOLIC PANEL Routine 06/03/2025 5:10 AM EDT Essential (primary) hypertension documented in this encounter Results * (ABNORMAL) Basic metabolic panel (06/03/2025 5:10 AM EDT) Sodium 140 133 - 145 mmol/L LAB CHEMISTRY METHOD 06/03/2025 2:19 PM EDT [facility] Potassium 4.4 3.5 - 5.5 mmol/L LAB CHEMISTRY METHOD 06/03/2025 2:19 PM EDT [facility] Chloride 106 96 - 110 mmol/L LAB CHEMISTRY METHOD 06/03/2025 2:19 PM EDT [facility] CO2 29 21 - 32 mmol/L LAB CHEMISTRY METHOD 06/03/2025 2:19 PM [facility] Anion Gap 5 3 - 11 LAB CHEMISTRY METHOD 06/03/2025 2:19 PM [facility] Glucose 65(L) 70 - 100 mg/dL LAB CHEMISTRY METHOD 06/03/2025 2:19 PM T [facility] BUN 23 5 - 25 mg/dL LAB CHEMISTRY METHOD 06/03/2025 2:19 PM [facility] Creatinine 1.31(H) 0.70 - 1.30 mg/dL LAB CHEMISTRY METHOD 06/03/2025 2:19 PM [facility] eGFR 59(L) >=60 mL/min/1. 73m2 LAB CHEMISTRY METHOD 06/03/2025 2:19 PM T [facility] Comment:Calculation based on the Chronic Kidney Disease Epidemiology Collaboration (CKD-EPI) equation refit without adjustment for race. BUN/Creatinine Ratio 17.6 LAB CHEMISTRY METHOD 06/03/2025 2:19 PM [facility] Calcium 8.2(L) 8.5 - 10.5 mg/dL LAB CHEMISTRY METHOD 06/03/2025 2:19 PM [facility] Blood Venous blood specimen / Unknown Venipuncture / Unknown 06/03/2025 5:10 AM EDT 06/03/2025 11:02 AM EDT us Ena Arango MD LAB BLOOD ORDERABLES Final Resul t [facility] [address] [place] [address], * (ABNORMAL) Complete blood count (06/03/2025 5:10 AM EDT) WBC 7.8 4.8 - 10.8 K/mcL LAB HEMETOLOGY METHOD 06/03/2025 11:59 AM [facility] RBC 3.60(L) 4.50 - 5.50 M[facility] LAB HEMETOLOGY METHOD 06/03/2025 11:59 AM [facility] Hemoglobin 10.7(L) 13.5 - 17.5 g/dL LAB HEMETOLOGY METHOD 06/03/2025 11:59 AM [facility] Hematocrit 34.2(L) 42.0 - 54.0 % LAB HEMETOLOGY METHOD 06/03/2025 11:59 AM [facility] MCV 96.1 79.0 - 98.0 FL LAB HEMETOLOGY METHOD 06/03/2025 11:59 AM [facility] MCH 30.1 27.0 - 32.0 pcg LAB HEMETOLOGY METHOD 06/03/2025 11:59 AM [facility] MCHC 31.3(L) 32.0 - 37.0 g/dL LAB HEMETOLOGY METHOD 06/03/2025 11:59 AM [facility] RDW 14.5 11.0 - 15.0 % LAB HEMETOLOGY METHOD 06/03/2025 11:59 AM [facility] Platelets 465(H) 130 - 400 K/[facility] HEMETOLOGY METHOD 06/03/2025 11:59 AM [facility] MPV 9.6 7.0 - 11.0 FL LAB HEMETOLOGY METHOD 06/03/2025 11:59 AM [facility] NRBC 0.0 <1.0 % LAB HEMETOLOGY METHOD 06/03/2025 11:59 AM [facility] NRBC Absolute 0.00 <0.10 K/mcL LAB HEMETOLOGY METHOD 06/03/2025 11:59 AM EDT [facility] Blood Venous blood specimen / Unknown Venipuncture / Unknown 06/03/2025 5:10 AM EDT 06/03/2025 11:02 AM EDT us Ena Arango MD LAB BLOOD ORDERABLES Final Resul t [facility] [address] [place] [address], documented in this encounter Visit Diagnoses Diagnosis Essential (primary) hypertension Unspecified essential hypertension Calculus of ureter documented in this encounter Care Teams Optometric Technologist Relationship Specialty Start Date End Date Valeria Brennan NP [address] [place] [address] PCP - General Primary Care 09/12/24 documented as of this encounter
== END 2025-06-04 12:40 | disposition home or self-care (01) ==
LOC: HO.NEURO 12:39
PROVIDERS: PCP Nurse Practitioner Primary Care; Visit Provider Psychiatry & Neurology Neurology
DX: M48.00 Spinal stenosis, site unspecified (principal)
CPT/HCPCS: 95886; 95913

== ENCOUNTER → 2025-06-04 13:00 | Outpatient (BNV) | payer MEDICARE, SELFPAY | PROVIDERS: PCP Nurse Practitioner Primary Care; Visit Provider Psychiatry & Neurology Neurology | DX: G62.89 Other specified polyneuropathies (principal) | CPT/HCPCS: 95886; 95911 ==